=== PATIENT | female | born 1990 | race Caucasian/White ===

== ENCOUNTER 2020-08-20 13:09 | Outpatient (REF) | payer OTHER, SELFPAY | END 2020-08-20 13:10 | disposition home or self-care (01) | LOC: HO.LAB 13:09 | PROVIDERS: PCP Internal Medicine; Visit Provider Internal Medicine | DX: Z20.822 Contact with and (suspected) exposure to COVID-19 (principal) | CPT/HCPCS: 36415; C9803; U0003 ==

== ENCOUNTER → 2020-08-30 11:02 | Outpatient (BNVA) | payer OTHER, SELFPAY | PROVIDERS: PCP Internal Medicine; Visit Provider Advanced Practice Midwife ==

== ENCOUNTER → 2020-09-02 13:44 | Outpatient (BNVA) | payer OTHER, SELFPAY | PROVIDERS: PCP Internal Medicine; Visit Provider Advanced Practice Midwife | DX: Z30.46 Encounter for surveillance of implantable subdermal contraceptive (principal) | CPT/HCPCS: 11982 ==

== ENCOUNTER 2020-12-29 15:04 | Outpatient (REF) | payer OTHER, SELFPAY ==
[2021-01-01 09:57] LABS: HPV mRNA E6/E7 rflx Not Detected (Not Detected)
== END 2020-12-29 15:05 | disposition home or self-care (01) ==
LOC: HO.LAB 15:04
PROVIDERS: PCP Internal Medicine; Visit Provider Advanced Practice Midwife
DX: Z01.419 Encounter for gynecological examination (general) (routine) without abnormal findings (principal); J45.909 Unspecified asthma, uncomplicated
CPT/HCPCS: 87624; 88142

== ENCOUNTER 2023-02-20 14:18 | Outpatient (AMB) | payer BC, SELFPAY ==
--- NOTE | 2023-02-20 14:37 | A.OFFVIS_ITS ---
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 Scribed for BRENTON Veloz by Summer Barahona certified medical coding specialist, on 02/20/2023 at 2:50 pm EST. Materials Management Manager: Materials Management Manager Present (Leisa) Allergies Sulfa (Sulfonamide Antibiotics) Allergy (Unknown, Verified 02/20/23 14:38) hives Is last menstrual period known: Yes Last menstrual period: 02/17/23 HPI HPI Comments History of Present Illness Details She is a premenopausal woman presenting for annual exam. She admits to eating healthy and tries to stay active with exercise. Currently sexually active. States her and her partner are trying to conceive for the past 3-4 months. Reports having menses every 70 days. Denies being tested for PCOS, hirsutism or acne. Denies vaginal itching and irritation. STD screening offered; she declines. Denies family hx of ovarian cancer. Last pap smear 12/29/20 [facility] Medical History Asthma History of ureteropelvic junction repair Irregular menses Family History Paternal Grandmother History of breast cancer Colon cancer Social History Alcohol intake: current Alcohol intake frequency: holidays/special occasions only Patient Tobacco Use Status: Never used Tobacco Current occupational status: employed Current occupation: [employer] Sexual orientation: Straight/Heterosexual Gender identity: Female Female Reproductive History Menstrual Age of Menarche: 11 Duration of menses: 3-5 days Date of last menstrual period: 02/17/23 control method: none Total pregnancies: 0 Date of last pap smear: 12/29/20 (neg pap and hpv) Physical Exam Vital Signs: Last Vital Signs BP 118/74 02/20/23 14:38 BMI result Body Mass Index 27.2 Const General: cooperative, healthy appearing, no acute distress, well developed and alert Orientation/consciousness: patient oriented x3 HEENT Head: Yes normal to inspection Eyes General: appearance normal, both eyes and all related structures Neck Neck: Yes normal visual inspection Thyroid: Thyroid normal Chest Chest palpation & inspection: normal inspection of the chest Breast/axilla inspection: normal inspection of the breasts (no puckering, dimpling, peau de orange, retraction, discharge, masses) Breast/axilla palpation: normal palpation of the breasts Resp Effort & Inspection: normal respiratory effort GI Inspection: Yes normal to inspection Palpation (GI): Soft to palpation (to palpation) Rectal Exam - Female: deferred General: Yes bladder normal to inspection External Female Exam: normal external appearance and normal appearance of the urethra Speculum Exam - Vagina: normal appearance of the vagina, normal palpation, normal vaginal discharge and other (small amount of blood present) Speculum Exam - Cervix: normal appearance of the cervix and normal palpation Bimanual exam- vagina & uterus: normal palpation and normal palpation Bimanual Exam- Adnexa, other: normal adnexae and no masses Skin General skin exam: no rashes or lesions noted Neuro General: patient oriented x3 Cognition (Neuro): normal cognition Extrem General: Yes normal to inspection Psych Attitude: cooperative Thought process: Normal thought process present Thought content: Normal thought content present Assessment & Plan Assessment & Plan (1) Encounter for well woman exam: Code(s): Z01.419 - Encounter for gynecological examination (general) (routine) without abnormal findings Plan: Discussed: Current recommendations for pap smears per ASCCP guidelines Breast awareness and periodic self breast exams. Maintaining a healthy lifestyle including a well balanced diet and routine exercise. Continue PNV. Discussed lab workup; patient is agreeable to have work up done. Follow up via tele-visit for plan of care. She declines referral to [facility] today, will consider in the future. All of her questions and concerns were addressed to the best of my ability. RTO in one year for AG. (2) Irregular menses: Code(s): N92.6 - Irregular menstruation, unspecified Orders: Orders 17 Hydroxyprogesterone Today N92.6 - Irregular menstruation, unspecified DHEA Sulfate Today N92.6 - Irregular menstruation, unspecified Follicle Stimulating Hormone Today N92.6 - Irregular menstruation, unspecified, R23.2 - Flushing Prolactin Today N92.6 - Irregular menstruation, unspecified Testosterone, Free/Total Today N92.6 - Irregular menstruation, unspecified Thyroid Stimulating Hormone Today N92.1 - Excessive and frequent menstruation with irregular cycle, N92.6 - Irregular menstruation, unspecified Coding Level of Care Code Est Pt Prev Care 18-39y(72803) Diagnoses Encounter for well woman exam Z01.419 Irregular menses N92.6
[2023-02-20 14:38] VITALS: BP 118/74; BMI 27.2
== END 2023-02-20 16:22 | disposition home or self-care (01) ==
LOC: HO.HWS 14:18
PROVIDERS: Visit Provider Advanced Practice Midwife
DX: Z01.419 Encounter for gynecological examination (general) (routine) without abnormal findings (principal); N92.6 Irregular menstruation, unspecified
CPT/HCPCS: 99395

== ENCOUNTER → 2023-02-20 14:18 | Outpatient (BNVA) | payer BC, SELFPAY | PROVIDERS: Visit Provider Advanced Practice Midwife ==

== ENCOUNTER 2023-02-21 17:00 | Outpatient (REF) | payer BC, SELFPAY ==
[2023-02-21 23:02] LABS: Thyroid Stimulating Hormone 1.24 uIU/mL (0.32-4.0)
[2023-02-24 12:44] LABS: Prolactin 16.4 ng/mL
[2023-02-24 21:08] LABS: DHEA Sulfate 216 mcg/dL (19-237)
[2023-03-01 11:04] LABS: Testosterone, Free 2.6 pg/mL (0.1-6.4); Testosterone, Total 33 ng/dL (2-45)
== END 2023-02-21 17:01 | disposition home or self-care (01) ==
LOC: HO.LAB 17:00
PROVIDERS: PCP Nurse Practitioner; Visit Provider Advanced Practice Midwife
DX: R23.2 Flushing (principal); N92.6 Irregular menstruation, unspecified
CPT/HCPCS: 36415; 82627; 83001; 83498; 84146; 84402; 84403; 84443

== ENCOUNTER 2023-03-13 12:45 | Outpatient (AMB) | payer BC, SELFPAY ==
--- NOTE | 2023-03-13 12:45 | A.OFFVIS_ITS ---
Intake Intake Visit Reasons: TV lab results Intake Note: cell # [phone] The patient agreed to use of a medical billing assistant during this encounter. Scribed for BRENTON Veloz by Summer Barahona medical billing assistant, on 03/13/2023 at 12:58 pm EST. Allergies Sulfa (Sulfonamide Antibiotics) Allergy (Unknown, Verified 03/13/23 12:46) hives Is last menstrual period known: Yes Last menstrual period: 02/17/23 HPI HPI Comments History of Present Illness Details D[employer] live video 12:58 - 1:00 pm. Phone Call due to Covid-19 Pandemic. Video was utilized then disrupted. Telehealth visit 1:00pm -1:05 pm. Phone Call due to Covid-19 Pandemic. She presents via phone/live video to discuss lab results regarding irregular menses missing up to 2 months at a time. Planning a future . She has no questions or concerns. 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 Sexual orientation: Straight/Heterosexual Gender identity: Female Female Reproductive History Menstrual Age of Menarche: 11 Date of last menstrual period: 02/17/23 Physical Exam Const General: cooperative, healthy appearing, comfortable, no acute distress, well developed, alert and awake Results Reviewed Results Reviewed: Laboratory Tests 02/21/23 02/21/23 17:11 17:11 TSH 1.24 FSH 7.0 Prolactin 16.4 Total Testosterone 33 Fr Testosterone Dialys 2.6 DHEA Sulfate 216 17-Hydroxyprogesterone 29 Assessment & Plan Assessment & Plan (1) Encounter to discuss test results: Code(s): Z71.2 - Person consulting for explanation of examination or test findings Plan: Discussed: Lab results; normal. Recommend using menstrual tracking apps, and ovulation kits as needed. Referral to see infertility specialist if no on one year. To chek with her insurance for coverage and providers on her list. Encouraged to take PNV. PNV Rx offered; she declines. If missed menses, take at home test. All of her questions and concerns were addressed to the best of my ability and shared decision making. She is agreeable to plan of care. (2) Irregular menses: Code(s): N92.6 - Irregular menstruation, unspecified Telehealth Telehealth Location of provider rendering services: practice address Location of patient: other Patient Identification confirmed using: Name, : Yes Telehealth method: video Patient verbally consented to treatment: Yes Patient verbally consented to billing insurance company: Yes Patient informed of any privacy concerns related to visit: Yes Coding Level of Care Code Tele Est Pt Level 3 ([id number]) Diagnoses Encounter to discuss test results Z71.2 Irregular menses N92.6
== END 2023-03-13 13:29 | disposition home or self-care (01) ==
PROVIDERS: PCP Nurse Practitioner; Visit Provider Advanced Practice Midwife
DX: N92.6 Irregular menstruation, unspecified (principal); Z71.2 Person consulting for explanation of examination or test findings
CPT/HCPCS: 99213

== ENCOUNTER → 2023-03-13 12:45 | Outpatient (BNVA) | payer SELFPAY | PROVIDERS: PCP Nurse Practitioner; Visit Provider Advanced Practice Midwife ==

== ENCOUNTER 2023-09-20 14:44 | Outpatient (AMB) | payer BC, SELFPAY ==
--- OUTSIDE RECORDS SUMMARY | 2023-09-20 14:45 | XMS_ITS | Continuity of Care Document ---
Author Name Unknown Organization [facility] Address [address] [place] [address]- Encounter [facility] Date(s): 04/15/23 - 04/22/23 [facility] [address] [place] [address]- Encounter Diagnosis Acute UTI(Discharge Diagnosis) - 04/15/23 Attending Physician: Stan Case MD Allergies, Adverse Reactions, Alerts Substance Reaction Severity Status sulfa drugs Hives Active Medications No Known Medications Problem List Diagnosis Diagnosis Type Effective Dates Health Status Clini yoko Service Informant Acute UTI Discharge Diagnosis 04/15/23 Vital Signs Most recent to oldest [Reference Range]: 1 Oxygen Saturation [94-100 %] 97 % (04/15/23 12:38 PM) Pulse Rate [55-90 bpm] 71 bpm (04/15/23 12:38 PM) Blood Pressure [90-138/55-84 mm Hg] 107/ 74mm Hg (04/15/23 12:38 PM) Respiratory Rate [16-30 br/min] 20 br/mi n (04/15/23 12:38 PM) Temperature [96.8-100.4 DegF] 97.5 DegF (04/15/23 12:38 PM) Mode of Delivery (Oxygen) Room air (04/15/23 12:38 PM) Blood pressure sites Arm, left (04/15/23 12:38 PM) Temperature Route Temporal (04/15/23 12:38 PM) Note * Malka Hyde NP: PERFORM, SIGN, VERIFY Event Display: Patient Education/Instruction Authored Date: [id number] [facility] *[facility] Clinical Summary Name SÁNCHEZ SPICERMARAL ESTRELLA Age 32 Years 1990 PCP PCP Phone Visit Date 04/15/2023 11:27:00 Additional Instructions: Scheduled Appointments?? Future Appointments ?No Future Appointments Scheduled Follow-Up Instructions ?? Diagnosis Urinary tract infection, site not specified Medications: Please continue your medications until treatment is completed or stopped by your provider. Discuss any questions related to medications with your provider. New Medications [id number], [address] [place], [place] [id number], [phone] Nitrofurantoin (nitrofurantoin macrocrystals 100 mg oral capsule) 1 capsule Oral twice a day for 5 Days. Refills: 0. Next Dose: Allergy Info:?? sulfa drugs Medications Given This Visit Future Orders ?No future orders Vital Signs Height Weight BMI Blood Pressure 107 mm Hg/74 mm Hg Temperature 97.5 DegF Pulse Rate 71 bpm Respiratory Rate 20 br/min 02 Sat Mode of Delivery 97 %/Room air You can now view a summary of your hospital visit from the comfort of your home through a free online portal called EpiVax. EpiVax is a website that allows you to securely view your medical information including discharge summary, medications and follow-up visits. ??You can alsosend a secure electronic message to your doctor???s office to request appointments, renew medications or just ask a question. You can enroll at [email or web address] or register during your next office visit. Disclaimer:?? The information provided is of a general nature and is intended to be used in conjunction with the recommendations and advice of your health care practitioner. ??Every effort has been made to ensure that the information provided is accurate and complete at the time it is provided to you however, as your needs change, or, as new ??information becomes available, different or additional instructions may be required. If you have questions, please consult with your primary care provider or pharmacist, as appropriate. ??This information is not intended to serve as substitution for assessment and evaluation by a qualified health care provider. If you do not have a primary care provider, you may find a [facility] provider by calling [employer] at [phone]. [facility], in keeping with [facility] guidance, no longer requires face masks for staff, patientsor visitors in most situations. Similar to time spent indoors at other locations, there is the chance that you were exposed to respiratory viruses during your time with us (such as flu or COVID-19).? If you develop symptoms concerning for a viral respiratory infection, please seek testing (and treatment if indicated) from your medical provider or home test kit. For information about the plan of care including goals and instructions for your diagnosis, please see the patient education orders section of this document. Patient Education Materials?? The content of this educational material or handout may have been modified, supplemented, or adapted from its original content and format to support your individualized medical care. Bladder Infection,??Female (Adult) Urine is normally free from bacteria. But bacteria can get into the urinary tract from the skin around the rectum, or it can travel in the blood from elsewhere in the body. Once it is in your urinarytract, it can cause infection in the urethra (urethritis), the bladder (cystitis), or the kidneys (p yelonephritis). The most common place for an infection is in the bladder. This is called a bladder infection. This is one of the most common infections in women. Most bladder infections are easily treated. They are not serious unless the infection spreads up to the kidney. The phrases bladder infection , UTI, and cystitis, are often used to describe the same thing, but they are not always the same. Cystitis is an inflammation of the bladder. The??most common causeof cystitis is an infection. Symptoms The infection causes inflammation in the urethra and bladder, which causes many of the symptoms. The most common symptoms of a bladder infection are: ??? Pain or burning when urinating ??? Having to urinate more often than usual ??? Urgent need to urinate ??? Only a small amount of urine comes out ??? Blood in urine ??? Abdominal discomfort, usually in the lower abdomen, above the pubic bone ??? Cloudy, strong, or bad smelling urine ??? Urinary retention, being unable to urinate ??? Unable to hold urine in (urinary incontinence) ??? Fever ??? Loss of appetite ??? Confusion (in older adults) Causes Bladder infections are not contagious. You can't get one from someone else, from a toilet seat, or from sharing a bath. The most common cause of bladder infections is bacteria from the bowels. The bacteria get onto the skin around the opening of the urethra. From there, it can get into the urine and travel up to the bladder, causing inflammation and infection. This usually happens because of: ??? Wiping improperly after urinating???always wipe from front to back. ??? Bowel incontinence ? Procedures such as having a catheter inserted ??? Older age ??? Not emptying your bladder (stagnated urine gives bacteria a chance to grow) ??? Dehydration ??? Constipation ??? Sex ??? Use of a diaphragm for control Treatment Bladder infections are diagnosed by a urine test. They are treated with antibiotics and usually??clear up quickly without complications. Treatment helps prevent a more serious kidney infection. Medicines Medicines can help in the treatment of a bladder infection: ??? Take antibiotics until they are used up, even if you feel better. It is important to finish them to make sure the infection has cleared. ??? You can use acetaminophen or ibuprofen for pain, fever, or discomfort, unless another medicine was prescribed. You can also alternate them, or use both together. They work differently and are a different class of medicines, so taking them together is not an overdose. If you have chronic liver or kidney disease, talk with your healthcare??provider before using??these medicines. Also talk with your provider if you've ever had a stomach ulcer or gastrointestinal bleeding, or are taking blood-thinner medicines. ??? If you are given??phenazopydridine to reduce burning with urination, it will cause your urine to become a bright orange color. This can stain clothing. Care and prevention These self-care steps can help prevent future infections: ??? Drink plenty of fluids to prevent dehydration and flush out of the bladder. Do this??unless youmust restrict fluids for other health reasons, or your doctor told you not to. ??? Proper cleaning after going to the bathroom is important. Wipe from front to back after using the toilet to prevent the spread of bacteria. ??? Urinate more often. Don't try to hold urine in for a long time. ??? Wear loose-fitting clothes and cotton underwear. Avoid tight-fitting pans. ??? Improve your diet and prevent constipation. Eat more fresh fruit and vegetables, and??fiber, and less junk and fatty foods. ??? Avoid sex until your symptoms are gone. ??? Avoid caffeine, alcohol, and spicy foods. These can irritate the bladder. ??? Urinate right after intercourse to flush out the bladder. ??? If you use control pills and have frequent bladder infections, discuss it with your doctor. Follow-up care Call your healthcare provider if all symptoms are not gone after 3 days of treatment. This is especially important if you have repeat infections. If a culture was done, you will be told if your treatment needs to be changed. If directed, you cancall??to find out the results. If X-rays were done, you will be told if the results will affect your??treatment. Call 911 Call emergency services if any of the following occur: ??? Trouble breathing ??? Difficulty arousing??or??confusion ??? Fainting or loss of consciousness ??? Rapid heart rate When to seek medical advice Call your healthcare provider right away if any of these occur: ??? Fever of 100.4??F (38.0??C) or higher, or as directed ??? Symptoms are not better??by the third day of treatment ??? Back or belly (abdominal) pain that gets worse ??? Repeated vomiting, or unable to keep medicine down ??? Weakness or dizziness ??? Vaginal discharge ??? Pain, redness, or swelling in the outer vaginal area (labia) ?? 8587-8777 [employer] [address] [place] [address], [place] [address]. All rights reserved. This information is not intended as a substitute for professional medical care. Always follow your healthcare professional's instructions. * Malka Hyde NP: PERFORM, SIGN, VERIFY Event Display: Patient Education/Instruction Authored Date: [facility] *[facility] Clinical Summary Name MARAL SPENCER Age 32 Years 1990 PCP PCP Phone Visit Date 04/15/2023 11:27:00 Additional Instructions: Scheduled Appointments?? Future Appointments ?No Future Appointments Scheduled Follow-Up Instructions ?? Diagnosis Urinary tract infection, site not specified Medications: Please continue your medications until treatment is completed or stopped by your provider. Discuss any questions related to medications with your provider. New Medications [id number], [address], [place] [id number], [phone] Nitrofurantoin (nitrofurantoin macrocrystals 100 mg oral capsule) 1 capsule Oral twice a day for 5 Days. Refills: 0. Next Dose: Allergy Info:?? sulfa drugs Medications Given This Visit Future Orders ?No future orders Vital Signs Height Weight BMI Blood Pressure 107 mm Hg/74 mm Hg Temperature 97.5 DegF Pulse Rate 71 bpm Respiratory Rate 20 br/min 02 Sat Mode of Delivery 97 %/Room air You can now view a summary of your hospital visit from the comfort of your home through a free online portal called EpiVax. EpiVax is a website that allows you to securely view your medical information including discharge summary, medications and follow-up visits. ??You can alsosend a secure electronic message to your doctor???s office to request appointments, renew medications or just ask a question. You can enroll at [email or web address] or register during your next office visit. Disclaimer:?? The information provided is of a general nature and is intended to be used in conjunction with the recommendations and advice of your health care practitioner. ??Every effort has been made to ensure that the information provided is accurate and complete at the time it is provided to you however, as your needs change, or, as new ??information becomes available, different or additional instructions may be required. If you have questions, please consult with your primary care provider or pharmacist, as appropriate. ??This information is not intended to serve as substitution for assessment and evaluation by a qualified health care provider. If you do not have a primary care provider, you may find a [facility] provider by calling [facility] [employer] Link at [phone]. [facility], in keeping with [facility] guidance, no longer requires face masks for staff, patientsor visitors in most situations. Similar to time spent indoors at other locations, there is the chance that you were exposed to respiratory viruses during your time with us (such as flu or COVID-19).? If you develop symptoms concerning for a viral respiratory infection, please seek testing (and treatment if indicated) from your medical provider or home test kit. For information about the plan of care including goals and instructions for your diagnosis, please see the patient education orders section of this document. Patient Education Materials?? The content of this educational material or handout may have been modified, supplemented, or adapted from its original content and format to support your individualized medical care. Bladder Infection,??Female (Adult) Urine is normally free from bacteria. But bacteria can get into the urinary tract from the skin around the rectum, or it can travel in the blood from elsewhere in the body. Once it is in your urinarytract, it can cause infection in the urethra (urethritis), the bladder (cystitis), or the kidneys (p yelonephritis). The most common place for an infection is in the bladder. This is called a bladder infection. This is one of the most common infections in women. Most bladder infections are easily treated. They are not serious unless the infection spreads up to the kidney. The phrases bladder infection , UTI, and cystitis, are often used to describe the same thing, but they are not always the same. Cystitis is an inflammation of the bladder. The??most common causeof cystitis is an infection. Symptoms The infection causes inflammation in the urethra and bladder, which causes many of the symptoms. The most common symptoms of a bladder infection are: ??? Pain or burning when urinating ??? Having to urinate more often than usual ??? Urgent need to urinate ??? Only a small amount of urine comes out ??? Blood in urine ??? Abdominal discomfort, usually in the lower abdomen, above the pubic bone ??? Cloudy, strong, or bad smelling urine ??? Urinary retention, being unable to urinate ??? Unable to hold urine in (urinary incontinence) ??? Fever ??? Loss of appetite ??? Confusion (in older adults) Causes Bladder infections are not contagious. You can't get one from someone else, from a toilet seat, or from sharing a bath. The most common cause of bladder infections is bacteria from the bowels. The bacteria get onto the skin around the opening of the urethra. From there, it can get into the urine and travel up to the bladder, causing inflammation and infection. This usually happens because of: ??? Wiping improperly after urinating???always wipe from front to back. ??? Bowel incontinence ? Procedures such as having a catheter inserted ??? Older age ??? Not emptying your bladder (stagnated urine gives bacteria a chance to grow) ??? Dehydration ??? Constipation ??? Sex ??? Use of a diaphragm for control Treatment Bladder infections are diagnosed by a urine test. They are treated with antibiotics and usually??clear up quickly without complications. Treatment helps prevent a more serious kidney infection. Medicines Medicines can help in the treatment of a bladder infection: ??? Take antibiotics until they are used up, even if you feel better. It is important to finish them to make sure the infection has cleared. ??? You can use acetaminophen or ibuprofen for pain, fever, or discomfort, unless another medicine was prescribed. You can also alternate them, or use both together. They work differently and are a different class of medicines, so taking them together is not an overdose. If you have chronic liver or kidney disease, talk with your healthcare??provider before using??these medicines. Also talk with your provider if you've ever had a stomach ulcer or gastrointestinal bleeding, or are taking blood-thinner medicines. ??? If you are given??phenazopydridine to reduce burning with urination, it will cause your urine to become a bright orange color. This can stain clothing. Care and prevention These self-care steps can help prevent future infections: ??? Drink plenty of fluids to prevent dehydration and flush out of the bladder. Do this??unless youmust restrict fluids for other health reasons, or your doctor told you not to. ??? Proper cleaning after going to the bathroom is important. Wipe from front to back after using the toilet to prevent the spread of bacteria. ??? Urinate more often. Don't try to hold urine in for a long time. ??? Wear loose-fitting clothes and cotton underwear. Avoid tight-fitting pans. ??? Improve your diet and prevent constipation. Eat more fresh fruit and vegetables, and??fiber, and less junk and fatty foods. ??? Avoid sex until your symptoms are gone. ??? Avoid caffeine, alcohol, and spicy foods. These can irritate the bladder. ??? Urinate right after intercourse to flush out the bladder. ??? If you use control pills and have frequent bladder infections, discuss it with your doctor. Follow-up care Call your healthcare provider if all symptoms are not gone after 3 days of treatment. This is especially important if you have repeat infections. If a culture was done, you will be told if your treatment needs to be changed. If directed, you cancall??to find out the results. If X-rays were done, you will be told if the results will affect your??treatment. Call 911 Call emergency services if any of the following occur: ??? Trouble breathing ??? Difficulty arousing??or??confusion ??? Fainting or loss of consciousness ??? Rapid heart rate When to seek medical advice Call your healthcare provider right away if any of these occur: ??? Fever of 100.4??F (38.0??C) or higher, or as directed ??? Symptoms are not better??by the third day of treatment ??? Back or belly (abdominal) pain that gets worse ??? Repeated vomiting, or unable to keep medicine down ??? Weakness or dizziness ??? Vaginal discharge ??? Pain, redness, or swelling in the outer vaginal area (labia) ?? [id number] [employer] [address] [place] [address], [place] [address]. All rights reserved. This information is not intended as a substitute for professional medical care. Always follow your healthcare professional's instructions.
--- OUTSIDE RECORDS SUMMARY | 2023-09-20 14:45 | XMS_ITS | Continuity of Care Document ---
Author Name Unknown Organization [facility] Address [address] [place] [address]- Encounter [facility] Date(s): 04/15/23 - 05/15/23 [facility] [address] [place] [address]- Attending Physician: Cj Claire Admitting Physician: Cj Claire Referring Physician: Cj Claire Allergies, Adverse Reactions, Alerts Substance Reaction Severity Status sulfa drugs Hives Active
--- NOTE | 2023-09-20 14:47 | A.OFFVIS_ITS ---
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 G 2 P 0. She reports last LMP of 08/01/2023 gives her an EDC of 05/10/24 for approximately now 7.3 weeks . She reports her periods were a little irregular. She denies any nausea or vomiting. She denies any pelvic pain or vaginal bleeding. She is currently taking vitamins. Her ultrasound appointment is booked for tomorrow. 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 Sexual orientation: Straight/Heterosexual Gender identity: Female Female Reproductive History Menstrual Age of Menarche: 11 Date of last menstrual period: 08/01/23 Total pregnancies: 1 Review of Systems Const All systems reviewed & are unremarkable except as noted in HPI and below Endo Reports no additional complaints Physical Exam Vital Signs: Last Vital Signs BP 100/60 09/20/23 14:50 BMI result Body Mass Index 26.5 Const General: cooperative, healthy appearing and no acute distress Psych Appearance: well kempt Attitude: cooperative Thought process: Normal thought process present Results AMB Test Urine AMB Test Urine Positive Last Edit by MUSTAPHA Prakash on 09/20/23 15:03 Results Reviewed Results Reviewed: Laboratory Last Values [facility]st Clinic Positive 09/20/23 15:03 Assessment & Plan Assessment & Plan (1) Early stage of : Code(s): Z34.90 - Encounter for supervision of normal , unspecified, unspecified trimester Plan: Discussed: Diet intake foods to avoid. Warning signs of when to call with any abdominal pain or vaginal bleeding. Await ultrasound findings for confirmation of EDC. Schedule nurse intake, and OB physical appointment. Informed of deliveries at [facility] and care administered here. All of her questions and concerns were addressed to the best of my ability and shared decision making. She is agreeable to the plan of care. This note is constructed using voice recognition software. While every effort has been made to ensure accuracy, product analyst errors may have been included. Orders: Orders AMB HCG Urine Test Today Z32.01 - Encounter for test, result positive Coding Level of Care Code Est Pt Level 3 (77882) Diagnoses Early stage of Z34.90
[2023-09-20 14:50] VITALS: BP 100/60; BMI 26.5
== END 2023-09-20 16:07 | disposition home or self-care (01) ==
LOC: HO.HWS 14:44
PROVIDERS: PCP Nurse Practitioner; Visit Provider Advanced Practice Midwife
DX: Z34.90 Encounter for supervision of normal pregnancy, unspecified, unspecified trimester (principal); Z32.01 Encounter for pregnancy test, result positive
CPT/HCPCS: 99213

== ENCOUNTER → 2023-09-20 14:44 | Outpatient (BNVA) | payer BC, SELFPAY | PROVIDERS: PCP Nurse Practitioner; Visit Provider Advanced Practice Midwife | DX: Z34.91 Encounter for supervision of normal pregnancy, unspecified, first trimester (principal) | CPT/HCPCS: 81025 ==

== ENCOUNTER 2023-09-21 12:28 | Outpatient (REF) | payer BC, SELFPAY ==
--- NOTE | ~2023-09-21 | US_ITS ---
EXAMINATION: US OBSTETRICAL ULTRASOUND CLINICAL INFORMATION: Irregular menses. COMPARISON: None available. LMP: 08/01/2023. Gestational age by maternal dates is 7 weeks 2 days. Estimated date of delivery by maternal dates is 05/07/2024. TECHNIQUE: Routine grayscale imaging of pelvis was performed FINDINGS: There is a single intrauterine gestational sac with visible yolk sac, embryo/fetus, and cardiac activity. There is no significant subchorionic hemorrhage or hematoma. HR: 124 beats per minute. CRL (crown rump length): 0.91 cm (7 weeks and 0 days +/- 4 days). SUSANNAH (estimated date of delivery): 05/09/2024 +/- 4 days. MATERNAL ADNEXA: The right maternal ovary measures 3.3 x 2.4 x 2.2 cm. There is anechoic cyst measuring 1.9 x 1.4 x 1.8 cm. The left maternal ovary measures 2.1 x 1.6 x 2.0 cm. There is no significant maternal adnexal mass. No maternal pelvic ascites. US/US OB <= 14 weeks fetus IMPRESSION: 1. Single intrauterine gestation with ultrasound gestational age of 7 weeks and 0 +/- 4 days. 2. Estimated date of delivery is 05/09/2024 +/- 4 days. 3. No maternal adnexal mass or pelvic ascites.
== END 2023-09-21 12:29 | disposition home or self-care (01) ==
LOC: HO.US 12:28
PROVIDERS: PCP Nurse Practitioner; Visit Provider Advanced Practice Midwife
DX: Z34.91 Encounter for supervision of normal pregnancy, unspecified, first trimester (principal); Z3A.01 Less than 8 weeks gestation of pregnancy
CPT/HCPCS: 76801

== ENCOUNTER 2023-10-03 13:51 | Outpatient (AMB) | payer BC, SELFPAY ==
--- NOTE | 2023-10-03 14:06 | A.OFFVISPN_ITS ---
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 Required: No Allergies Sulfa (Sulfonamide Antibiotics) Allergy (Unknown, Verified 09/20/23 14:50) hives Medication List - Last Reconciled 10/03/23 by Lisbet Fontenot albuterol sulfate 90 mcg/actuation (Proair Digihaler) 2 inhalations inhalation Q6H PRN Is last menstrual period known: Yes Last menstrual period: 08/01/23 Post menopausal: No Patient : Yes Do you need a note to return to daycare/school/sports/work: No PFSH Medical History (Updated 10/03/23 @ 14:56 by Lisbet Fontenot) Supervision of normal in first trimester Enlarged kidney Early stage of Irregular menses Asthma Surgical History (Updated 10/03/23 @ 14:11 by Lisbet Fontenot) History of ureteropelvic junction repair Family History (Updated 10/03/23 @ 14:15 by Lisbet Fontenot) Paternal Grandmother History of breast cancer Colon cancer Lung cancer Paternal Grandfather CAD (coronary artery disease) Maternal Grandmother Alzheimer's dementia Mother Hypothyroidism Father No problems noted. 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 Current occupational exposures/hazards: No Sexual orientation: Straight/Heterosexual Gender identity: Female Female Reproductive History Menstrual Age of Menarche: 11 Duration of menses: 3-5 days Date of last menstrual period: 08/01/23 control method: vaginal ring Total pregnancies: 1 Full term: 0 Premature: 0 Number of Living Children: 0 Ab induced: 0 Ab spontaneous: 0 Ectopics: 0 Multiple births: 0 Date of last pap smear: 12/28/20 History of abnormal pap smear: No History of STI: No History History 1 Elective abortions 0 Para 0 Spontaneous abortions 0 Hx # Term Pregnancies 0 Ectopic pregnancies 0 Hx # Pregnancies 0 Multiple births 0 History Other: First Education First Trimester Education Checklist Plans/Education - by Trimester Counseled: Yes HIV and other routine tests: discussed Infectious disease exposure: chicken pox immunity discussed, hepatitis risk discussed and tuberculosis exposure discussed Influenza vaccine: discussed Nutrition and weight gain counseling: special diet: discussed Sexual activity: discussed Exercise: discussed Tobacco use: No Alcohol use: No Substance use: No Environmental/home/work hazards: discussed Domestic violence: discussed Travel: discussed Seatbelt use: discussed Toxoplasmosis precautions (cats/raw meat): discussed danger signs: Yes education packet: vitamins and iron, diet and weight gain, fish and mercury intake, listeriosis prevention, caffeine use, exercise and activity, work issues, sexual activity, x-ray exposure, medication use, toxoplasmosis precautions, sauna/hot tub use and dental care Mental health: discussed Anticipated course of care: discussed Indications for ultrasound: discussed Health center information: visit schedule reviewed, coverage 24 hours a day and signs of miscarriage reviewed Questionnaire History History : 1 Visit SUSANNAH Calculator Estimated Delivery Date Method Current WG Current Estimate 05/09/24 Ultrasound #1 8w 5d Other Estimates 05/07/24 LMP (Certain) 9w 0d Expected Delivery Route/Plan OB Visit Log Initial Weight: 165 lb Date -?-?-?-?-?-?-?-?-?-?-?-?- EGA Weight Gest Week Fundal Ht Present FHR move Efface % Edema BP PrePreg We Weight GTT -?-?-?-?-?-?-?-?-?-?-?-?- Glucose LV Protein Blood Type 10/03/23 -?-?-?-?-?-?-?-?-?-?-?-?- 8w 5d 170 lb (+5 lb) 170 lb -?-?-?-?-?-?-?-?-?-?-?-?- Notes Visit Date: 10/03/23 Last Updated by: Lisbet Fontenot Swati is a pleasant with LMP 08/01/23 (certain) and SUSANNAH 05/07/24, GA today 8w5d. US on 09/21/23 at 7w0d gives SUSANNAH 05/09/24 and GA today of 9w0d. She is taking OTC PNV and reports some occasional nausea, otherwise she feels well. She takes dry crackers for relief. Swati and her are excited about this planned . She is 33 yo and will be 34 yo on or about her SUSANNAH. She was given the Folder. We reviewed danger signs, and first trimester education. Will order NT US and labs today. Pt is scheduled for OB PE 10/19/23 with Kaycee paperwork will be provided for this visit. Swati requests sex to be provided, although she is not completely certain she will want to know the result. Further discussion at the time of results. Swati also reports h/o enlarged kidney without problems at this time. She sees Urologist here at [facility] [place]. Blood type A neg per patient. Pt has no questions at this time. She verbalizes understanding and agrees with plan. 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 Patient's age 35 years or older as of estimated date of delivery: No 2. Thalassemia (Luxembourgish, Kosovan, Mediterranean, or Background); MCV less than 80: No 3. Neural Tube Defect (Meningomyelocele, Spina Bifida, or Anencephaly): No 4. Congenital Heart Defect: No 5. Down Syndrome: No 6. Shahriar-Sachs (Ashkenazi Presybeterian, Cajun, Khmer Bruneian): Yes 7. Fredis Disease (Ashkenazi Presybeterian): No 8. Familial Dysautonomia (Ashkenazi Presybeterian): No 9. Sickle Cell Disease or Trait (): No 10. Hemophilia or other blood disorders: No 11. Muscular Dystrophy: No 12. Cystic Fibrosis: No 13. [place]'s Chorea: No 14. Intellectual disability/Autism: Yes 15. Other inherited genetic or chromosomal disorder: No 16. Maternal Metabolic Disorder (EG,TYPE 1 Diabetes, PKU): No 17. Patient or baby's father had a child with defects not listed above: No 18. Recurrent loss or a stillbirth: No 19. Medications (including supplements, vitamins, herbs or otc drugs)/illicit/recreational drugs/alcohol since last menstrual period: No 20. Any other: No Comments/Counseling: Khmer Bruneian background Infection History 1. Live with someone with TB or exposed to TB: No 2. Rash or viral illness since last menstrual period: No 3. Hepatitis B,C: No Other (see comments) Source: [employer] Coding Level of Care Code Established Pt Betty Patient Type Established Medical Decision Making Moderate Complexity Diagnoses Early stage of Z34.90 Irregular menses N92.6 Enlarged kidney N28.81 Supervision of normal in first trimester Z34.91 Time Spent (min) 60 Assessment & Plan Assessment & Plan (1) Early stage of : Code(s): Z34.90 - Encounter for supervision of normal , unspecified, unspecified trimester Category: Medical (2) Irregular menses: Code(s): N92.6 - Irregular menstruation, unspecified Category: Medical (3) Enlarged kidney: Code(s): N28.81 - Hypertrophy of kidney Category: Medical (4) Supervision of normal in first trimester: Code(s): Z34.91 - Encounter for supervision of normal , unspecified, first trimester Category: Medical Plan Next visit for OB PE scheduled 10/19/23 Pt will go to lab to have blood/urine testing Counseled re: [place] [facility] Discussed Panorama test and pt would like to know sex Orders: Orders Complete Blood Count no Diff Today Z32.01 - Encounter for test, result positive, Z34.91 - Encounter for supervision of normal , unspecified, first trimester Syphilis Screen Today Z32.01 - Encounter for test, result positive, Z34.91 - Encounter for supervision of normal , unspecified, first trimester Hepatitis B Surface Antigen Today Z32.01 - Encounter for test, result positive, Z34.91 - Encounter for supervision of normal , unspecified, first trimester Urine Culture Today Z32.01 - Encounter for test, result positive, Z34.91 - Encounter for supervision of normal , unspecified, first trimester HIV Ab/Ag Today Z32.01 - Encounter for test, result positive, Z34.91 - Encounter for supervision of normal , unspecified, first trimester Drug Screen Urine Today Z32.01 - Encounter for test, result positive, Z34.91 - Encounter for supervision of normal , unspecified, first trimester Screen Today Z32.01 - Encounter for test, result positive, Z34.91 - Encounter for supervision of normal , unspecified, first trimester Rubella IgG Antibody Today Z32.01 - Encounter for test, result positive, Z34.91 - Encounter for supervision of normal , unspecified, first trimester CF Carrier Screen Today Z32.01 - Encounter for test, result positive, Z34.91 - Encounter for supervision of normal , unspecified, first trimester Varicella IgG Antibody Today Z32.01 - Encounter for test, result positive, Z34.91 - Encounter for supervision of normal , unspecified, first trimester Hepatitis C Antibody Today Z32.01 - Encounter for test, result positive, Z34.91 - Encounter for supervision of normal , unspecified, first trimester US OB 1T nuc measure Today Z32.01 - Encounter for test, result positive, Z34.91 - Encounter for supervision of normal , unspecified, first trimester
[2023-10-03 14:07] VITALS: BMI 26.6
== END 2023-10-03 15:26 | disposition home or self-care (01) ==
LOC: HO.HWS 13:51
PROVIDERS: PCP Nurse Practitioner; Visit Provider Advanced Practice Midwife
DX: Z34.90 Encounter for supervision of normal pregnancy, unspecified, unspecified trimester (principal); N92.6 Irregular menstruation, unspecified; N28.81 Hypertrophy of kidney; Z34.91 Encounter for supervision of normal pregnancy, unspecified, first trimester
CPT/HCPCS: 25942

== ENCOUNTER 2023-10-03 13:51 | Outpatient (REF) | payer BC, SELFPAY ==
[2023-10-03 17:44] LABS: Hematocrit 41.7 % (37.0-47.0); Hemoglobin 13.7 g/dl (12.0-16.0); Mean Corpuscular HGB Conc 32.9 g/dl (31.0-35.0); Mean Corpuscular Hemoglobin 28.4 pg (27.0-33.0); Mean Corpuscular Volume 86.3 fL (80.0-98.0); Mean Platelet Volume 9.2 fL (9.4-12.3); Platelet Count 259 X10*3/uL (160-400); Red Blood Count 4.83 X10*6/uL (4.20-5.50); Red Cell Distribution Width 12.8 % (11.0-16.0); White Blood Count 10.5 X10*3/uL (4.8-10.8)
[2023-10-03 18:56] LABS: Amphetamine Screen Urine Not Detected (Not Detect); Barbiturates, Urine Not Detected (Not Detect); Benzodiazepines Screen Urine Not Detected (Not Detect); Cannabinoid Screen Urine Not Detected (Not Detect); Cocaine Screen Urine Not Detected (Not Detect); Fentanyl, urine Not Detected (Not Detect); Opiate Screen Urine Not Detected (Not Detect); Phencyclidine Screen Urine Not Detected (Not Detect)
[2023-10-04 07:56] LABS: Syphilis Screen Nonreactive (Nonreactive)
[2023-10-04 08:29] LABS: HBsAGNum1 0.34 S/CO (0.00-0.99); HIV AB/AG Nonreactive (Nonreactive); HIV Num 1 0.05 S/CO (0.00-0.99); Hepatitis B Surface Antigen Negative (Negative); ~HepC Num1 0.13 S/CO (0.00-0.79); ~Hepatitis C Antibody Nonreactive (Nonreactive)
[2023-10-05 13:49] LABS: Rubella IgG Antibody 1.13 Index
[2023-10-16 13:48] LABS: CF Ethnicity NG; Cystic Fibrosis NEGATIVE (NEGATIVE)
== END 2023-10-03 13:52 | disposition home or self-care (01) ==
LOC: HO.LAB 13:51
PROVIDERS: PCP Nurse Practitioner; Visit Provider Advanced Practice Midwife
DX: O26.891 Other specified pregnancy related conditions, first trimester (principal); N28.81 Hypertrophy of kidney; Z3A.08 8 weeks gestation of pregnancy
CPT/HCPCS: 80307; 81220; 85027; 86762; 86780; 86787; 86803; 86850; 86900; 87086; 87340; 87389; 99212

== ENCOUNTER 2023-10-10 16:49 | Outpatient (REF) | payer BC, SELFPAY ==
[2023-10-10 17:42] LABS: Appearance Urine Clear; Color Urine Yellow; Glucose Urine UA Negative (Negative); Leukocyte Esterase Urine Trace (Negative); Nitrite Urine Negative (Negative); Specific Gravity - Urine <= 1.005 (1.005-1.025); UMIC TRIGGER UACC YES; Urine Blood Negative (Negative); Urine Ketones Negative (Negative); Urine Protein Negative (Neg-Trace)
[2023-10-10 17:47] LABS: Bacteria Urine None Seen (None Seen); Hyaline Casts Urine 0-2 /LPF (0-2); RBC Urine 0-2 /HPF (0-2); Squamous Epithelial Cell Urine 0-2 /HPF (0-2); WBC Urine 0-5 /HPF (0-5)
== END 2023-10-10 16:50 | disposition home or self-care (01) ==
LOC: HO.LAB 16:49
PROVIDERS: PCP Nurse Practitioner; Visit Provider Advanced Practice Midwife
DX: Z34.91 Encounter for supervision of normal pregnancy, unspecified, first trimester (principal)
CPT/HCPCS: 81001

== ENCOUNTER 2023-10-19 11:24 | Outpatient (REF) | payer BC, SELFPAY ==
[2023-10-20 09:45] LABS: CT PCR NOT DETECTED (Not Detect.); NG PCR NOT DETECTED (Not Detect.)
== END 2023-10-19 11:25 | disposition home or self-care (01) ==
LOC: HO.LNP 11:24
PROVIDERS: PCP Nurse Practitioner; Visit Provider Advanced Practice Midwife
DX: Z34.91 Encounter for supervision of normal pregnancy, unspecified, first trimester (principal); Z3A.11 11 weeks gestation of pregnancy; Z20.2 Contact with and (suspected) exposure to infections with a predominantly sexual mode of transmission
CPT/HCPCS: 0353U; 99212

== ENCOUNTER 2023-10-19 11:24 | Outpatient (AMB) | payer BC, SELFPAY ==
--- NOTE | 2023-10-19 11:27 | MHC.OFFVISPN ---
Intake Vital Signs 10/19/23 11:30 Height 5 ft 7 in Weight 170 lb BMI 26.6 BP 116/64 Intake Visit Reasons: OBPE Intake Note: no concerns Phlebotomy Program Coordinator Required: No Information Interpreted: non-clinical & clinical Explosive Operator: Explosive Operator Present (Beverly LUCIANO) Accompanied by: Self / Same As Patient Allergies Sulfa (Sulfonamide Antibiotics) Allergy (Unknown, Verified 10/19/23 11:31) hives Patient : Yes PFSH Medical History Supervision of normal in first trimester Enlarged kidney Early stage of Asthma Surgical History History of ureteropelvic junction repair Family History Paternal Grandmother History of breast cancer Colon cancer Lung cancer Paternal Grandfather CAD (coronary artery disease) Maternal Grandmother Alzheimer's dementia Mother Hypothyroidism Father No problems noted. 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 Current occupational exposures/hazards: No Sexual orientation: Straight/Heterosexual Gender identity: Female Female Reproductive History Menstrual Age of Menarche: 11 Total pregnancies: 1 Date of last pap smear: 12/30/20 History History 1 Elective abortions 0 Para 0 Spontaneous abortions 0 Hx # Term Pregnancies 0 Ectopic pregnancies 0 Hx # Pregnancies 0 Multiple births 0 Questionnaire History History : 1 Visit SUSANNAH Calculator Estimated Delivery Date Method Current WG Current Estimate 05/09/24 Ultrasound #1 11w 0d Other Estimates 05/07/24 LMP (Certain) 11w 2d Expected Delivery Route/Plan Specific Issues/Plans 33 Yr. old G 1 P0 EDC: 05/09/24 by US Blood type: Aneg Problem List: 1. Rh negative 2. AMA, EDC on birthdate 3. enlarged right thyroid lobe-TSH, ref. to PCP, FH of thyroid disorder-mom Testing: Panorama: ordered 10/19/23 NT scan: booked 10/28 AFP: FAS: Glucose: CBC 1st Tri: 13.7/41.7 28 wk. 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 11wk. CHERYL. Taking PNV, Doing well with no concerns. Good appetite, stays well hydrated. Denies any LOF, VB, abd. pain or urinary symptoms. OBPE today, enlarged right thyroid lobe plan labs follow up with PCP. EPDS=2. Reviewed: Panoramic labs today. Nuchal lucency ordered appt. on 10/28 at [facility]. Rh neg, to call if any VB. Rhogam use. When to call for any vaginal bleeding or abdominal pain or other concerns. Encouraged a healthy well balanced diet, regular walking/exercise in . Hydrate well, 8-10 glasses of water daily. RTO 4wks. Visit Date: 10/03/23 Last Updated by: Lisbet Fontenot Swati is a pleasant with LMP 08/01/23 (certain) and SUSANNAH 05/07/24, GA today 8w5d. US on 09/21/23 at 7w0d gives SUSANNAH 05/09/24 and GA today of 9w0d. She is taking OTC PNV and reports some occasional nausea, otherwise she feels well. She takes dry crackers for relief. Swati and her are excited about this planned . She is 33 yo and will be 34 yo on or about her SUSANNAH. She was given the Folder. We reviewed danger signs, and first trimester education. Will order NT US and labs today. Pt is scheduled for OB PE 10/19/23 with Renee and Re paperwork will be provided for this visit. Swati requests sex to be provided, although she is not completely certain she will want to know the result. Further discussion at the time of results. Swati also reports h/o enlarged kidney without problems at this time. She sees Urologist here at [facility] [place]. Blood type A neg per patient. Pt has no questions at this time. She verbalizes understanding and agrees with plan. Review of Systems Const All systems reviewed & are unremarkable except as noted in HPI and below Reports as per HPI Eyes Reports no additional complaints ENT Reports no additional complaints Card Reports no additional complaints Resp Reports no additional complaints GI Reports as per HPI and Reports no additional complaints Reports as per HPI Musc Reports no additional complaints Skin/Breast Reports as per HPI Neuro Reports no additional complaints Psych Reports no additional complaints Endo Reports no additional complaints Stanley/Lymph Reports no additional complaints Aller/Immun Reports no additional complaints Exam Const Constitutional General: cooperative, healthy appearing, no acute distress, well developed and alert Orientation/consciousness: patient oriented x3 HENMT Head: normal to inspection Eyes General: appearance normal, both eyes and all related structures Neck Neck: other (Thyroid right lobe is enlarged) Thyroid: Thyroid normal Chest Chest palpation & inspection: normal inspection of the chest and other (no puckering, dimpling, peau de orange, retraction, discharge, masses) Breast/axilla inspection: normal inspection of the breasts Breast/axilla palpation: normal palpation of the breasts Resp Effort & Inspection: normal respiratory effort Auscultation: clear to auscultation bilaterally Cardio Rhythm: regular rhythm Heart sounds: S1 normal heart sound present GI Inspection (GI): normal to inspection Palpation (GI): Soft to palpation General Exam: Yes bladder normal to palpation External Female Exam: normal external appearance and normal appearance of the urethra Urethra: normal appearance of the urethra Speculum exam - vagina: normal appearance of the vagina and normal discharge Speculum Exam - Cervix: normal appearance of the cervix Bimanual exam- vagina & uterus: normal bimanual exam, normal palpation, bladder normal to palpation, normal palpation, non-tender and enlarged (Enlarged 11 week size, heart rate 150) Bimanual Exam- Adnexa, other: no masses Skin General skin exam: no rashes or lesions noted Rashes: no rashes Neuro Cognition (Neuro): normal cognition Extrem General: normal to inspection Psych Attitude: cooperative Thought process: Normal thought process present Coding Level of Care Code [place] Diagnoses Enlarged thyroid E04.9 Assessment & Plan Assessment & Plan (1) Enlarged thyroid: Code(s): E04.9 - Nontoxic goiter, unspecified Orders: Orders TSH reflex Free T4 () Today E04.9 - Nontoxic goiter, unspecified CT NG by PCR Today Z34.91 - Encounter for supervision of normal , unspecified, first trimester
[2023-10-19 11:30] VITALS: BP 116/64; BMI 26.6
== END 2023-10-19 12:06 | disposition home or self-care (01) ==
LOC: HO.HWS 11:25
PROVIDERS: PCP Nurse Practitioner; Visit Provider Advanced Practice Midwife
DX: Z34.90 Encounter for supervision of normal pregnancy, unspecified, unspecified trimester (principal)
CPT/HCPCS: 25942; S3005

== ENCOUNTER 2023-10-19 15:46 | Outpatient (REF) | payer BC, SELFPAY ==
[2023-10-19 17:55] LABS: TSH reflex Free T4 (Prenatal) 0.74 uIU/mL (0.32-4.0)
== END 2023-10-19 15:47 | disposition home or self-care (01) ==
LOC: HO.LAB 15:46
PROVIDERS: PCP Nurse Practitioner; Visit Provider Advanced Practice Midwife
DX: E04.9 Nontoxic goiter, unspecified (principal)
CPT/HCPCS: 36415; 84443

== ENCOUNTER 2023-11-15 10:25 | Outpatient (AMB) | payer BC, SELFPAY ==
--- NOTE | 2023-11-15 10:27 | MHC.OFFVISPN ---
Intake Vital Signs 11/15/23 10:28 Height 5 ft 7 in Weight 180 lb BMI 28.2 BP 100/60 Intake Visit Reasons: CHERYL Allergies Sulfa (Sulfonamide Antibiotics) Allergy (Unknown, Verified 11/15/23 10:27) hives Patient : Yes PFSH Medical History Supervision of normal in first trimester Enlarged kidney Early stage of Asthma Surgical History History of ureteropelvic junction repair Family History Paternal Grandmother History of breast cancer Colon cancer Lung cancer Paternal Grandfather CAD (coronary artery disease) Maternal Grandmother Alzheimer's dementia Mother Hypothyroidism Father No problems noted. 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 old G 1 P0 EDC: 05/09/24 by US Blood type: Aneg Problem List: 1. Rh negative 2. AMA, EDC on birthdate 3. enlarged right thyroid lobe-TSH, ref. to PCP, FH of thyroid disorder-mom EPDS=2 at IOB Testing: Panorama: low risk, DOES NOT WANT TO KNOW THE GENDER CBC 1st Tri: 13.7/41.7 28 wk. 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 14.6 wk. CHERYL. Taking PNV, Doing well with no concerns. Good appetite, stays well hydrated. Denies any LOF, VB, abd. pain or urinary symptoms. Reviewed: NT-normal, Panoramic low risk (does not want to know the gender at this time), horizon results-negative . Reviewed: PTL s/s-LOF/Ctx's/VB, when to seek emergent care at [facility]. Discussed seeing option of seeing midwives at [facility] sooner if desires to establish care. Encouraged a healthy well balanced diet, regular walking/exercise in . Hydrate well, 8-10 glasses of water daily. FAS in 4-5 weeks RTO 4 wks. Visit Date: 10/19/23 Last Updated by: Renee Hill CNM Note author: Renee Hill CNM. 11wk. CHERYL. Taking PNV, Doing well with no concerns. Good appetite, stays well hydrated. Denies any LOF, VB, abd. pain or urinary symptoms. OBPE today, enlarged right thyroid lobe plan labs follow up with PCP. EPDS=2. Reviewed: Panoramic labs today. Nuchal lucency ordered appt. on 10/28 at [facility]. Rh neg, to call if any VB. Rhogam use. When to call for any vaginal bleeding or abdominal pain or other concerns. Encouraged a healthy well balanced diet, regular walking/exercise in . Hydrate well, 8-10 glasses of water daily. RTO 4wks. Visit Date: 10/03/23 Last Updated by: Lisbet Fontenot Swati is a pleasant with LMP 08/01/23 (certain) and SUSANNAH 05/07/24, GA today 8w5d. US on 09/21/23 at 7w0d gives SUSANNAH 05/09/24 and GA today of 9w0d. She is taking OTC PNV and reports some occasional nausea, otherwise she feels well. She takes dry crackers for relief. Swati and her are excited about this planned . She is 33 yo and will be 34 yo on or about her SUSANNAH. She was given the Folder. We reviewed danger signs, and first trimester education. Will order NT US and labs today. Pt is scheduled for OB PE 10/19/23 with Kaycee paperwork will be provided for this visit. Swati requests sex to be provided, although she is not completely certain she will want to know the result. Further discussion at the time of results. Swati also reports h/o enlarged kidney without problems at this time. She sees Urologist here at [facility] [place]. Blood type A neg per patient. Pt has no questions at this time. She verbalizes understanding and agrees with plan. Results AMB Urinalysis, Automated UA Leukoctes 1 Efrain/uL Last Edit by MUSTAPHA Prakash on 11/15/23 10:35 UA Nitrite Negative Last Edit by Jovanna Quintero A on 11/15/23 10:35 UA Urobilinogen 0 mg/dL Last Edit by Jovanna Quintero A on 11/15/23 10:35 UA Protein 1 mg/dL Last Edit by Jovanna Quintero, A on 11/15/23 10:35 UA pH 7.5 Last Edit by Jovanna Quintero A on 11/15/23 10:35 UA Blood 0 [place]/uL Last Edit by Jovanna Quintero A on 11/15/23 10:35 UA Specific [place] 1.010 Last Edit by Jovanna Quintero A on 11/15/23 10:35 UA Ketone Negative Last Edit by Jovanna Quintero A on 11/15/23 10:35 UA Bilirubin 0 mg/dL Last Edit by Jovanna Quintero A on 11/15/23 10:35 UA Glucose 0 mg/dL Last Edit by Jovanna Quintero A on 11/15/23 10:35 Results Reviewed Results Reviewed: Laboratory Last Values Urine pH (Auto) 7.5 11/15/23 10:34 Specific [place] (Auto) 1.010 11/15/23 10:34 Urine Protein (Auto) 1 mg/dL 11/15/23 10:34 Glucose (UA)(Auto) 0 mg/dL 11/15/23 10:34 Urine Ketones (Auto) Negative 11/15/23 10:34 Urine Blood (Auto) 0 [place]/uL 11/15/23 10:34 Urine Nitrite (Auto) Negative 11/15/23 10:34 Urine Bilirubin (Auto) 0 mg/dL 11/15/23 10:34 Urine Urobilinogen (Auto) 0 mg/dL 11/15/23 10:34 Leukocyte Esterase (Auto) 1 Efrain/uL 11/15/23 10:34 Coding Level of Care Code Betty Assessment & Plan Assessment & Plan Orders: Orders US OB /maternal detail 12/17/23 Z34.92 - Encounter for supervision of normal , unspecified, second trimester AMB Urinalysis Automated Today Z34.92 - Encounter for supervision of normal , unspecified, second trimester
[2023-11-15 10:28] VITALS: BP 100/60; BMI 28.2
== END 2023-11-15 10:45 | disposition home or self-care (01) ==
PROVIDERS: PCP Nurse Practitioner; Visit Provider Advanced Practice Midwife
DX: Z34.92 Encounter for supervision of normal pregnancy, unspecified, second trimester (principal)
CPT/HCPCS: 25942

== ENCOUNTER → 2023-11-15 10:25 | Outpatient (BNVA) | payer BC, SELFPAY | PROVIDERS: PCP Nurse Practitioner; Visit Provider Advanced Practice Midwife | DX: Z34.02 Encounter for supervision of normal first pregnancy, second trimester (principal) | CPT/HCPCS: 81003; 99212 ==

== ENCOUNTER 2023-12-13 08:21 | Outpatient (AMB) | payer BC, SELFPAY ==
--- NOTE | 2023-12-13 08:28 | A.OFFVISPN_ITS ---
Intake Vital Signs 12/13/23 08:29 Height 5 ft 7 in Weight 185 lb BMI 29.0 BP 104/60 Intake Visit Reasons: lalo Allergies Sulfa (Sulfonamide Antibiotics) Allergy (Unknown, Verified 12/13/23 08:32) hives Patient : Yes [facility] Medical History (Updated 11/15/23 @ 10:46 by Renee Hill CNM) Supervision of normal in second trimester Supervision of normal in first trimester Enlarged kidney Early stage of Asthma Surgical History History of ureteropelvic junction repair Family History Paternal Grandmother History of breast cancer Colon cancer Lung cancer Paternal Grandfather CAD (coronary artery disease) Maternal Grandmother Alzheimer's dementia Mother Hypothyroidism Father No problems noted. 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 old G 1 P0 EDC: 05/09/24 by US Blood type: Aneg Problem List: 1. Rh negative 2. AMA, EDC on birthdate 3. enlarged right thyroid lobe-TSH, ref. to PCP, FH of thyroid disorder-mom EPDS=2 at IOB Testing: Panorama: low risk, DOES NOT WANT TO KNOW THE GENDER CBC 1st Tri: 13.7/41.7 28 wk. 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 Transportation: own car Labor, and Concerns: Labor support: Plan: Infant Feeding Plans: control: OB Visit Log Initial Weight: 165 lb Date -?-?-?-?-?-?-?-?-?-?-?-?- EGA Weight Gest Week Fundal Ht Present FHR move Efface % Edema BP PrePreg We Weight GTT -?-?-?-?-?-?-?-?-?-?-?-?- Glucose LV Protein Blood Type 10/03/23 -?-?-?-?-?-?-?-?-?-?-?-?- 8w 5d 170 lb (+5 lb) 170 lb -?-?-?-?-?-?-?-?-?-?-?-?- 10/19/23 -?-?-?-?-?-?-?-?-?-?-?-?- 11w 0d 170 lb (+5 lb) 11 150 116/64 170 lb -?-?-?-?-?-?-?-?-?-?-?-?- 11/15/23 -?-?-?-?-?-?-?-?-?-?-?-?- 14w 6d 180 lb (+15 lb) 15 150 100/60 180 lb -?-?-?-?-?-?-?-?-?-?-?-?- 12/13/23 -?-?-?-?-?-?-?-?-?-?-?-?- 18w 6d 185 lb (+20 lb) 19 150 104/60 185 lb -?-?-?-?-?-?-?-?-?-?-?-?- Notes Visit Date: 12/13/23 Last Updated by: Renee Hill CNM Note author: Renee Hill CNM. 18.6wk. LALO. Taking PNV, Doing well with no concerns. Good appetite, stays well hydrated. Denies any LOF, VB, abd. pain or urinary symptoms. FAS 12/21/23. Reviewed: LOF/Ctx's/VB, when to seek emergent care. Labs. RTO 4wks. Visit Date: 11/15/23 Last Updated by: Renee Hill CNM Note author: Renee Hill CNM. 14.6 wk. LALO. Taking PNV, Doing well with no concerns. Good appetite, stays well hydrated. Denies any LOF, VB, abd. pain or urinary symptoms. Reviewed: NT-normal, Panoramic low risk (does not want to know the gender at this time), horizon results-negative . Reviewed: PTL s/s-LOF/Ctx's/VB, when to seek emergent care at [facility]. Discussed seeing option of seeing midwives at [facility] sooner if desires to establish care. Encouraged a healthy well balanced diet, regular walking/exercise in . Hydrate well, 8-10 glasses of water daily. FAS in 4-5 weeks RTO 4 wks. Visit Date: 10/19/23 Last Updated by: Renee Hill CNM Note author: Renee Hill CNM. 11wk. LALO. Taking PNV, Doing well with no concerns. Good appetite, stays well hydrated. Denies any LOF, VB, abd. pain or urinary symptoms. OBPE today, enlarged right thyroid lobe plan labs follow up with PCP. EPDS=2. Reviewed: Panoramic labs today. Nuchal lucency ordered appt. on 10/28 at [facility]. Rh neg, to call if any VB. Rhogam use. When to call for any vaginal bleeding or abdominal pain or other concerns. Encouraged a healthy well balanced diet, regular walking/exercise in . Hydrate well, 8-10 glasses of water daily. RTO 4wks. Visit Date: 10/03/23 Last Updated by: Lisbet Storey Po [place] is a pleasant with LMP 08/01/23 (certain) and SUSANNAH 05/07/24, GA today 8w5d. US on 09/21/23 at 7w0d gives SUSANNAH 05/09/24 and GA today of 9w0d. She is taking OTC PNV and reports some occasional nausea, otherwise she feels well. She takes dry crackers for relief. Swati and her are excited about this planned . She is 33 yo and will be 34 yo on or about her SUSANNAH. She was given the Folder. We reviewed danger signs, and first trimester education. Will order NT US and labs today. Pt is scheduled for OB PE 10/19/23 with Kaycee paperwork will be provided for this visit. Swati requests sex to be provided, although she is not completely certain she will want to know the result. Further discussion at the time of results. Swati also reports h/o enlarged kidney without problems at this time. She sees Urologist here at [facility]. Blood type A neg per patient. Pt has no questions at this time. She verbalizes understanding and agrees with plan. Results AMB Urinalysis, Automated UA Leukoctes 2 Efrain/uL Last Edit by MUSTAPHA Prakash on 12/13/23 08:33 UA Nitrite Negative Last Edit by MUSTAPHA Prakash on 12/13/23 08:33 UA Urobilinogen 0 mg/dL Last Edit by MUSTAPHA Prakash on 12/13/23 08:3 3 UA Protein 1 mg/dL Last Edit by MUSTAPHA Prakash on 12/13/23 08:33 UA pH 7.0 Last Edit by MUSTAPHA Prakash on 12/13/23 08:33 UA Blood 0.5 [place]/uL Last Edit by MUSTAPHA Prakash on 12/13/23 08:33 UA Specific [place] 1.015 Last Edit by MUSTAPHA Prakash on 12/13/23 08:33 UA Ketone Negative Last Edit by MUSTAPHA Prakash on 12/13/23 08:33 UA Bilirubin 0 mg/dL Last Edit by MUSTAPHA Prakash on 12/13/23 08:33 UA Glucose 0 mg/dL Last Edit by MUSTAPHA Prakash on 12/13/23 08:33 Results Reviewed Results Reviewed: Laboratory Last Values Urine pH (Auto) 7.0 12/13/23 08:33 Specific [place] (Auto) 1.015 12/13/23 08:33 Urine Protein (Auto) 1 mg/dL 12/13/23 08:33 Glucose (UA)(Auto) 0 mg/dL 12/13/23 08:33 Urine Ketones (Auto) Negative 12/13/23 08:33 Urine Blood (Auto) 0.5 [place]/uL 12/13/23 08:33 Urine Nitrite (Auto) Negative 12/13/23 08:33 Urine Bilirubin (Auto) 0 mg/dL 12/13/23 08:33 Urine Urobilinogen (Auto) 0 mg/dL 12/13/23 08:33 Leukocyte Esterase (Auto) 2 Efrain/uL 12/13/23 08:33 Coding Level of Care Code [place] Assessment & Plan Assessment & Plan Orders: Orders AMB Urinalysis Automated Today Z34.92 - Encounter for supervision of normal , unspecified, second trimester
[2023-12-13 08:29] VITALS: BP 104/60; BMI 29.0
== END 2023-12-13 08:51 | disposition home or self-care (01) ==
PROVIDERS: PCP Nurse Practitioner; Visit Provider Advanced Practice Midwife
DX: Z34.92 Encounter for supervision of normal pregnancy, unspecified, second trimester (principal)
CPT/HCPCS: 25942

== ENCOUNTER → 2023-12-13 08:21 | Outpatient (BNVA) | payer BC, SELFPAY | PROVIDERS: PCP Nurse Practitioner; Visit Provider Advanced Practice Midwife | DX: Z34.02 Encounter for supervision of normal first pregnancy, second trimester (principal) | CPT/HCPCS: 81003; 99212 ==

== ENCOUNTER 2024-01-10 12:40 | Outpatient (AMB) | payer BC, SELFPAY ==
--- NOTE | 2024-01-10 12:45 | A.OFFVISPN_ITS ---
Intake Vital Signs 01/10/24 12:50 Height 5 ft 7 in Weight 190 lb BMI 29.8 BP 112/62 Intake Visit Reasons: CHERYL Roll Cleaner Required: No Allergies Sulfa (Sulfonamide Antibiotics) Allergy (Unknown, Verified 01/10/24 12:51) hives Is last menstrual period known: Yes Last menstrual period: 08/01/23 Post menopausal: No Patient : Yes PFSH Medical History Supervision of normal in second trimester Supervision of normal in first trimester Enlarged kidney Early stage of Asthma Surgical History History of ureteropelvic junction repair Family History Paternal Grandmother History of breast cancer Colon cancer Lung cancer Paternal Grandfather CAD (coronary artery disease) Maternal Grandmother Alzheimer's dementia Mother Hypothyroidism Father No problems noted. 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 Current occupational exposures/hazards: No Sexual orientation: Straight/Heterosexual Gender identity: Female Female Reproductive History Menstrual Age of Menarche: 11 Date of last menstrual period: 08/01/23 control method: none Total pregnancies: 1 Date of last pap smear: 12/30/20 (negative) History of abnormal pap smear: No History History 1 Elective abortions 0 Para 0 Spontaneous abortions 0 Hx # Term Pregnancies 0 Ectopic pregnancies 0 Hx # Pregnancies 0 Multiple births 0 Questionnaire History History : 1 Visit SUSANNAH Calculator Estimated Delivery Date Method Current WG Current Estimate 05/09/24 Ultrasound #1 22w 6d Other Estimates 05/07/24 LMP (Certain) 23w 1d Expected Delivery Route/Plan Specific Issues/Plans 33 Yr. old G 1 P0 EDC: 05/09/24 by US Blood type: Aneg Problem List: 1. Rh negative 2. AMA, EDC on birthdate 3. enlarged right thyroid lobe-TSH, ref. to PCP, FH of thyroid disorder-mom EPDS=2 at IOB Testing: Panorama: low risk CBC 1st Tri: 13.7/41.7 28 wk. 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 car Labor, and Concerns: Labor support: Plan: Feeding Plans: control: OB Visit Log Initial Weight: 165 lb Date -?-?-?-?-?-?-?-?-?-?-?-?- EGA Weight Gest Week Fundal Ht Present FHR move Efface % Edema BP PrePreg We Weight GTT -?-?-?-?-?-?-?-?-?-?-?-?- Glucose LV Protein Blood Type 10/03/23 -?-?-?-?-?-?-?-?-?-?-?-?- 8w 5d 170 lb (+5 lb) 170 lb -?-?-?-?-?-?-?-?-?-?-?-?- 10/19/23 -?-?-?-?-?-?-?-?-?-?-?-?- 11w 0d 170 lb (+5 lb) 11 150 116/64 170 lb -?-?-?-?-?-?-?-?-?-?-?-?- 11/15/23 -?-?-?-?-?-?-?-?-?-?-?-?- 14w 6d 180 lb (+15 lb) 15 150 100/60 180 lb -?-?-?-?-?-?-?-?-?-?-?-?- 12/13/23 -?-?-?-?-?-?-?-?-?-?-?-?- 18w 6d 185 lb (+20 lb) 19 150 104/60 185 lb -?-?-?-?-?-?-?-?-?-?-?-?- 01/10/24 -?-?-?-?-?-?-?-?-?-?-?-?- 22w 6d 190 lb (+25 lb) 22 150 active 112/62 190 lb -?-?-?-?-?-?-?-?-?-?-?-?- Notes Visit Date: 01/10/24 Last Updated by: Renee Hill CNM Note author: Renee Hill CNM. 22.6wk. CHERYL. Taking PNV, Doing well with no concerns. Good appetite, stays well hydrated. Denies any LOF, VB, abd. pain or urinary symptoms. Good FM. Having a girl. Reviewed: FAS PTL s/s-LOF/Ctx's/VB, PEC s/s when to seek emergent care. discomforts, self help measures. FM and when to call the office for further eval. Hydrate well, 10-12 glasses of water daily. Options for classes. 28wk labs at next visit, A neg. Rhogam to follow. RTO 4wks. Visit Date: 12/13/23 Last Updated by: Renee Hill CNM Note author: Renee Hill CNM. 18.6wk. CHERYL. Taking PNV, Doing well with no concerns. Good appetite, stays well hydrated. Denies any LOF, VB, abd. pain or urinary symptoms. FAS 12/21/23. Reviewed: LOF/Ctx's/VB, when to seek emergent care. Labs. RTO 4wks. Visit Date: 11/15/23 Last Updated by: Renee Hill CNM Note author: Renee Hill CNM. 14.6 wk. CHERYL. Taking PNV, Doing well with no concerns. Good appetite, stays well hydrated. Denies any LOF, VB, abd. pain or urinary symptoms. Reviewed: NT-normal, Panoramic low risk (does not want to know the gender at this time), horizon results-negative . Reviewed: PTL s/s-LOF/Ctx's/VB, when to seek emergent care at [facility]. Discussed seeing option of seeing midwives at [facility] sooner if desires to establish care. Encouraged a healthy well balanced diet, regular walking/exercise in . Hydrate well, 8-10 glasses of water daily. FAS in 4-5 weeks RTO 4 wks. Visit Date: 10/19/23 Last Updated by: Renee Hill CNM Note author: Renee Hill CNM. 11wk. CHERYL. Taking PNV, Doing well with no concerns. Good appetite, stays well hydrated. Denies any LOF, VB, abd. pain or urinary symptoms. OBPE today, enlarged right thyroid lobe plan labs follow up with PCP. EPDS=2. Reviewed: Panoramic labs today. Nuchal lucency ordered appt. on 10/28 at [facility]. Rh neg, to call if any VB. Rhogam use. When to call for any vaginal bleeding or abdominal pain or other concerns. Encouraged a healthy well balanced diet, regular walking/exercise in . Hydrate well, 8-10 glasses of water daily. RTO 4wks. Visit Date: 10/03/23 Last Updated by: Lisbet Fontenot Swati is a pleasant with LMP 08/01/23 (certain) and SUSANNAH 05/07/24, GA today 8w5d. US on 09/21/23 at 7w0d gives SUSANNAH 05/09/24 and GA today of 9w0d. She is taking OTC PNV and reports some occasional nausea, otherwise she feels well. She takes dry crackers for relief. Swati and her are excited about this planned . She is 33 yo and will be 34 yo on or about her SUSANNAH. She was given the Folder. We reviewed danger signs, and first trimester education. Will order NT US and labs today. Pt is scheduled for OB PE 10/19/23 with Kaycee paperwork will be provided for this visit. Swati requests sex to be provided, although she is not completely certain she will want to know the result. Further discussion at the time of results. Swati also reports h/o enlarged kidney without problems at this time. She sees Urologist here at [facility] [place]. Blood type A neg per patient. Pt has no questions at this time. She verbalizes understanding and agrees with plan. Coding Level of Care Code [place] Assessment & Plan Assessment & Plan Orders: Orders Complete Blood Count no Diff 4 Weeks Z34.92 - Encounter for supervision of normal , unspecified, second trimester Syphilis Screen Today Z20.2 - Contact with and (suspected) exposure to infections with a predominantly sexual mode of transmission, Z34.92 - Encounter for supervision of normal , unspecified, second trimester Glucose 1 Hour PP 50gm Dose Today Z34.92 - Encounter for supervision of normal , unspecified, second trimester Antibody Screen Today Z34.92 - Encounter for supervision of normal , unspecified, second trimester
[2024-01-10 12:50] VITALS: BP 112/62; BMI 29.8
== END 2024-01-10 13:05 | disposition home or self-care (01) ==
LOC: HO.HWS 12:40
PROVIDERS: PCP Nurse Practitioner; Visit Provider Advanced Practice Midwife
DX: Z34.90 Encounter for supervision of normal pregnancy, unspecified, unspecified trimester (principal)
CPT/HCPCS: 25942

== ENCOUNTER → 2024-01-10 12:40 | Outpatient (BNVA) | payer BC, SELFPAY | PROVIDERS: PCP Nurse Practitioner; Visit Provider Advanced Practice Midwife | DX: O09.512 Supervision of elderly primigravida, second trimester (principal); Z3A.22 22 weeks gestation of pregnancy | CPT/HCPCS: 99212 ==

== ENCOUNTER 2024-02-08 12:45 | Outpatient (AMB) | payer BC, SELFPAY ==
[2024-02-08 12:47] VITALS: BP 124/80; BMI 31.0
--- NOTE | 2024-02-08 12:47 | A.OFFVISPN_ITS ---
Intake Vital Signs 02/08/24 12:47 Height 5 ft 7 in Weight 198 lb BMI 31.0 BP 124/80 Blood Pressure Location Rt brachial Position Sitting Intake Visit Reasons: lalo Allergies Sulfa (Sulfonamide Antibiotics) Allergy (Unknown, Verified 01/10/24 12:51) hives PFSH Medical History Supervision of normal in second trimester Supervision of normal in first trimester Enlarged kidney Early stage of Asthma Surgical History History of ureteropelvic junction repair Family History Paternal Grandmother History of breast cancer Colon cancer Lung cancer Paternal Grandfather CAD (coronary artery disease) Maternal Grandmother Alzheimer's dementia Mother Hypothyroidism Father No problems noted. 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 old G 1 P0 EDC: 05/09/24 by Blood type: Aneg Problem List: 1. Rh negative 2. AMA, EDC on birthdate 3. enlarged right thyroid lobe-TSH, ref. to PCP, FH of thyroid disorder-mom EPDS=2 at IOB Testing: Panorama: low risk CBC 1st Tri: 13.7/41.7 28 wk. 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 car Labor, and Concerns: Labor support: Plan: Feeding Plans: control: OB Visit Log Initial Weight: 165 lb Date -?-?-?-?-?-?-?-?-?-?-?-?- EGA Weight Gest Week Fundal Ht Present FHR move Efface % Edema BP PrePreg We Weight GTT -?-?-?-?-?-?-?-?-?-?-?-?- Glucose LV Protein Blood Type 10/03/23 -?-?-?-?-?-?-?-?-?-?-?-?- 8w 5d 170 lb (+5 lb) 170 lb -?-?-?-?-?-?-?-?-?-?-?-?- 10/19/23 -?-?-?-?-?-?-?-?-?-?-?-?- 11w 0d 170 lb (+5 lb) 11 150 116/64 170 lb -?-?-?-?-?-?-?-?-?-?-?-?- 11/15/23 -?-?-?-?-?-?-?-?-?-?-?-?- 14w 6d 180 lb (+15 lb) 15 150 100/60 180 lb -?-?-?-?-?-?-?-?-?-?-?-?- 12/13/23 -?-?-?-?-?-?-?-?-?-?-?-?- 18w 6d 185 lb (+20 lb) 19 150 104/60 185 lb -?-?-?-?-?-?-?-?-?-?-?-?- 01/10/24 -?-?-?-?-?-?-?-?-?-?-?-?- 22w 6d 190 lb (+25 lb) 22 150 active 112/62 190 lb -?-?-?-?-?-?-?-?-?-?-?-?- 02/08/24 -?-?-?-?-?-?-?-?-?-?-?-?- 27w 0d 198 lb (+33 lb) 27.5 150 active 124/80 198 lb -?-?-?-?-?-?-?-?-?-?-?-?- Notes Visit Date: 02/08/24 Last Updated by: Renee Hill CNM Note author: Renee Hill CNM. 27wk. LALO. Taking PNV, Doing well with no concerns. Good appetite, stays well hydrated. Denies any LOF, VB, abd. pain or urinary symptoms. A negative plan 28 week labs next week and RhoGAM to follow. Appointments to be scheduled RTO 2 wks. Visit Date: 01/10/24 Last Updated by: Renee Hill CNM Note author: Renee Hill CNM. 22.6wk. LALO. Taking PNV, Doing well with no concerns. Good appetite, stays well hydrated. Denies any LOF, VB, abd. pain or urinary symptoms. Good FM. Having a girl. Reviewed: FAS PTL s/s-LOF/Ctx's/VB, PEC s/s when to seek emergent care. discomforts, self help measures. FM and when to call the office for further eval. Hydrate well, 10-12 glasses of water daily. Options for classes. 28wk labs at next visit, A neg. Rhogam to follow. RTO 4wks. Visit Date: 12/13/23 Last Updated by: Renee Hill CNM Note author: Renee Hill CNM. 18.6wk. LALO. Taking PNV, Doing well with no concerns. Good appetite, stays well hydrated. Denies any LOF, VB, abd. pain or urinary symptoms. FAS 12/21/23. Reviewed: LOF/Ctx's/VB, when to seek emergent care. Labs. RTO 4wks. Visit Date: 11/15/23 Last Updated by: Renee Hill CNM Note author: Renee Hill CNM. 14.6 wk. LALO. Taking PNV, Doing well with no concerns. Good appetite, stays well hydrated. Denies any LOF, VB, abd. pain or urinary symptoms. Reviewed: NT-normal, Panoramic low risk (does not want to know the gender at this time), horizon results-negative . Reviewed: PTL s/s-LOF/Ctx's/VB, [facility]. Discussed seeing option of seeing midwives at [facility] sooner if desires to establish care. Encouraged a healthy well balanced diet, regular walking/exercise in . Hydrate well, 8-10 glasses of water daily. FAS in 4-5 weeks RTO 4 wks. Visit Date: 10/19/23 Last Updated by: Renee Hill CNM Note author: Renee Hill CNM. 11wk. LALO. Taking PNV, Doing well with no concerns. Good appetite, stays well hydrated. Denies any LOF, VB, abd. pain or urinary symptoms. OBPE today, enlarged right thyroid lobe plan labs follow up with PCP. EPDS=2. Reviewed: Panoramic labs today. Nuchal lucency ordered appt. on 10/28 at [facility]. Rh neg, to call if any VB. Rhogam use. When to call for any vaginal bleeding or abdominal pain or other concerns. Encouraged a healthy well balanced diet, regular walking/exercise in . Hydrate well, 8-10 glasses of water daily. RTO 4wks. Visit Date: 10/03/23 Last Updated by: Lisbet Fontenot Swati is a pleasant with LMP 08/01/23 (certain) and SUSANNAH 05/07/24, GA today 8w5d. US on 09/21/23 at 7w0d gives SUSANNAH 05/09/24 and GA today of 9w0d. She is taking OTC PNV and reports some occasional nausea, otherwise she feels well. She takes dry crackers for relief. Swati and her are excited about this planned . She is 33 yo and will be 34 yo on or about her SUSANNAH. She was given the Folder. We reviewed danger signs, and first trimester education. Will order NT US and labs today. Pt is scheduled for OB PE 10/19/23 with Kaycee paperwork will be provided for this visit. Swati requests sex to be provided, although she is not completely certain she will want to know the result. Further discussion at the time of results. Swati also reports h/o enlarged kidney without problems at this time. She sees Urologist here at [facility]. Blood type A neg per patient. Pt has no questions at this time. She verbalizes understanding and agrees with plan. Results AMB Urinalysis, Automated UA Leukoctes 15 Efrain/uL Last Edit by Kristen Salazar CMA on 02/08/24 12:53 UA Nitrite Negative Last Edit by Kristen Salazar, JAMIA on 02/08/24 12:53 UA Urobilinogen 0 mg/dL Last Edit by Kristen Salazar, JAMIA on 02/08/24 12:53 UA Protein 0 mg/dL Last Edit by Kristen Salazar, JAMIA on 02/08/24 12:53 UA pH 7.5 Last Edit by Kristen Salazar, JAMIA on 02/08/24 12:53 UA Blood 0 [place]/uL Last Edit by Kristen Salazar, JAMIA on 02/08/24 12:53 UA Specific [place] 1.005 Last Edit by Kristen Salazar CMA on 02/08/24 12:53 UA Ketone Negative Last Edit by Kristen Salazar CMA on 02/08/24 12:53 UA Bilirubin 0 mg/dL Last Edit by Kristen Salazar CMA on 02/08/24 12:53 UA Glucose 0 mg/dL Last Edit by Kristen Salazar CMA on 02/08/24 12:53 Coding Level of Care Code [place] Assessment & Plan Assessment & Plan Orders: Orders AMB Urinalysis Automated Today Z13.9 - Encounter for screening, unspecified TSH reflex Free T4 () Today E04.9 - Nontoxic goiter, unspecified
== END 2024-02-08 13:14 | disposition home or self-care (01) ==
LOC: HO.HWS 12:45
PROVIDERS: PCP Nurse Practitioner; Visit Provider Advanced Practice Midwife
DX: Z3A.24 24 weeks gestation of pregnancy (principal)
CPT/HCPCS: 25942

== ENCOUNTER → 2024-02-08 12:45 | Outpatient (BNVA) | payer BC, SELFPAY | PROVIDERS: PCP Nurse Practitioner; Visit Provider Advanced Practice Midwife | DX: O99.282 Endocrine, nutritional and metabolic diseases complicating pregnancy, second trimester (principal); E04.9 Nontoxic goiter, unspecified; Z3A.28 28 weeks gestation of pregnancy | CPT/HCPCS: 81003; 99212 ==

== ENCOUNTER 2024-02-11 15:45 | Outpatient (REF) | payer BC, SELFPAY ==
[2024-02-11 17:22] LABS: Hematocrit 36.6 % (37.0-47.0); Mean Corpuscular HGB Conc 32.8 g/dl (31.0-35.0); Mean Corpuscular Hemoglobin 28.1 pg (27.0-33.0); Mean Corpuscular Volume 85.7 fL (80.0-98.0); Mean Platelet Volume 9.3 fL (9.4-12.3); Platelet Count 272 X10*3/uL (160-400); Red Blood Count 4.27 X10*6/uL (4.20-5.50); Red Cell Distribution Width 13.2 % (11.0-16.0); White Blood Count 14.8 X10*3/uL (4.8-10.8)
[2024-02-11 18:05] LABS: Glucose 1 Hour PP 50gm Dose 132 mg/dL (60-140)
[2024-02-11 18:24] LABS: TSH reflex Free T4 (Prenatal) 0.79 uIU/mL (0.32-4.0)
[2024-02-12 07:51] LABS: Syphilis Screen Nonreactive (Nonreactive)
== END 2024-02-11 15:46 | disposition home or self-care (01) ==
LOC: HO.LAB 15:45
PROVIDERS: PCP Nurse Practitioner; Visit Provider Advanced Practice Midwife
DX: Z20.2 Contact with and (suspected) exposure to infections with a predominantly sexual mode of transmission (principal); Z34.92 Encounter for supervision of normal pregnancy, unspecified, second trimester; E04.9 Nontoxic goiter, unspecified
CPT/HCPCS: 36415; 82950; 84443; 85027; 86780; 86850

== ENCOUNTER 2024-02-26 10:30 | Outpatient (AMB) | payer BC, SELFPAY ==
--- NOTE | 2024-02-26 10:40 | MHC.OFFVISPN ---
Intake Vital Signs 02/26/24 10:41 Height 5 ft 7 in Weight 197 lb BMI 30.9 BP 112/64 Intake Visit Reasons: CHERYL 29 weeks Intake Note: EPDS 1 Allergies Sulfa (Sulfonamide Antibiotics) Allergy (Unknown, Verified 02/26/24 10:41) hives Patient : Yes [facility] Medical History (Updated 02/26/24 @ 12:06 by Renee Hill CNM) Supervision of normal in second trimester Enlarged kidney Asthma Surgical History History of ureteropelvic junction repair Family History Paternal Grandmother History of breast cancer Colon cancer Lung cancer Paternal Grandfather CAD (coronary artery disease) Maternal Grandmother Alzheimer's dementia Mother Hypothyroidism Father No problems noted. 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 Current occupational exposures/hazards: No Sexual orientation: Straight/Heterosexual Gender identity: Female Female Reproductive History Menstrual Age of Menarche: 11 History History 1 Elective abortions 0 Para 0 Spontaneous abortions 0 Hx # Term Pregnancies 0 Ectopic pregnancies 0 Hx # Pregnancies 0 Multiple births 0 Questionnaire Neponset Depression Neponset Depression Scale I have been able to laugh and see the funny side of things: As much as I always could I have looked forward with enjoyment to things: As much as I ever did I have blamed myself unnecessarily when things went wrong: No, never I have been anxious or worried for no reason: Hardly ever I have felt scared of panicky for no very good reason at all: No, not at all Things have been getting on top of me: No, I have been coping as well as ever I have been so unhappy that I have had difficulty sleeping: No, not at all I have felt sad or miserable: No, not at all I have been so unhappy that I have been crying: No, never The thought of harming myself has occurred to me: Never 1 Visit SUSANNAH Calculator Estimated Delivery Date Method Current WG Current Estimate 05/09/24 Ultrasound #1 29w 4d Other Estimates 05/07/24 LMP (Certain) 29w 6d Expected Delivery Route/Plan Specific Issues/Plans 33 Yr. old G 1 P0 EDC: 05/09/24 by US Blood type: Aneg Problem List: 1. Rh negative, Rhogam 02/26/24 2. AMA, EDC on birthdate 3. enlarged right thyroid lobe-TSH, ref. to PCP, FH of thyroid disorder-mom EPDS=2 at IOB Testing: Panorama: low risk CBC 1st Tri: 13.7/41.7 28 wk. HCT: 36.6 Glucose- 132 GBS: Vaccinations: Flu: UTD Covid: Vax x4, Covid+ . Tdap: RSV: [id number]: Education/Services WIC: not eligible CBE: [facility] info given, tour and classes book. 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 Transportation: own car Labor, and Concerns: Labor support: Plan: natural Infant Feeding Plans: control: Nexplanon OB Visit Log Initial Weight: 165 lb Date <del>?</del> EGA Weight Gest Week Fundal Ht Present FHR move Efface % Edema BP PrePreg We Weight GTT <del>?</del> Glucose LV Protein Blood Type 10/03/23 <del>?</del> 8w 5d 170 lb (+5 lb) 170 lb <del>?</del> 10/19/23 <del>?</del> 11w 0d 170 lb (+5 lb) 11 150 116/64 170 lb <del>?</del> 04/04/24 <del>?</del> 14w 6d 180 lb (+15 lb) 15 150 100/60 180 lb <del>?</del> 12/13/23 <del>?</del> 18w 6d 185 lb (+20 lb) 19 150 104/60 185 lb <del>?</del> 01/10/24 <del>?</del> 22w 6d 190 lb (+25 lb) 22 150 active 112/62 190 lb <del>?</del> 02/08/24 <del>?</del> 27w 0d 198 lb (+33 lb) 27.5 150 active 124/80 198 lb <del>?</del> 02/26/24 <del>?</del> 29w 4d 197 lb (+32 lb) 30 140 active 112/64 197 lb <del>?</del> Notes Visit Date: 02/26/24 Last Updated by: Renee Hill CNM Note author: Renee Hill CNM. 29.4 wk. CHERYL. Taking PNV, Doing well with no concerns. Good appetite, stays well hydrated. Denies any LOF, VB, abd. pain or urinary symptoms. She reports a mild case of COVID last week. Reviewed: PTL s/s-LOF/Ctx's/VB, when to seek emergent care. discomforts, self help measures. FM and when to call the office for further eval. Encouraged a healthy well balanced diet, regular walking/exercise in . Hydrate well, 10-12 glasses of water daily. RhoGAM today. Plans Tdap at her next visit. RTO 2 wks. Visit Date: 02/08/24 Last Updated by: Renee Hill CNM Note author: Renee Hill CNM. 27wk. CHERYL. Taking PNV, Doing well with no concerns. Good appetite, stays well hydrated. Denies any LOF, VB, abd. pain or urinary symptoms. A negative plan 28 week labs next week and RhoGAM to follow. Appointments to be scheduled RTO 2 wks. Visit Date: 01/10/24 Last Updated by: Renee Hill CNM Note author: Renee Hill CNM. 22.6wk. CHERYL. Taking PNV, Doing well with no concerns. Good appetite, stays well hydrated. Denies any LOF, VB, abd. pain or urinary symptoms. Good FM. Having a girl. Reviewed: FAS PTL s/s-LOF/Ctx's/VB, PEC s/s when to seek emergent care. discomforts, self help measures. FM and when to call the office for further eval. Hydrate well, 10-12 glasses of water daily. Options for classes. 28wk labs at next visit, A neg. Rhogam to follow. RTO 4wks. Visit Date: 12/13/23 Last Updated by: Renee Hill CNM Note author: Renee Hill CNM. 18.6wk. CHERYL. Taking PNV, Doing well with no concerns. Good appetite, stays well hydrated. Denies any LOF, VB, abd. pain or urinary symptoms. FAS 12/21/23. Reviewed: LOF/Ctx's/VB, when to seek emergent care. Labs. RTO 4wks. Visit Date: 11/15/23 Last Updated by: Renee Hill CNM Note author: Renee Hill CNM. 14.6 wk. CHERYL. Taking PNV, Doing well with no concerns. Good appetite, stays well hydrated. Denies any LOF, VB, abd. pain or urinary symptoms. Reviewed: NT-normal, Panoramic low risk (does not want to know the gender at this time), horizon results-negative . Reviewed: PTL s/s-LOF/Ctx's/VB, when to seek emergent care at [facility]. Discussed seeing option of seeing midwives at [facility] sooner if desires to establish care. Encouraged a healthy well balanced diet, regular walking/exercise in . Hydrate well, 8-10 glasses of water daily. FAS in 4-5 weeks RTO 4 wks. Visit Date: 10/19/23 Last Updated by: Renee Hill CNM Note author: Renee Hill CNM. 11wk. CHERYL. Taking PNV, Doing well with no concerns. Good appetite, stays well hydrated. Denies any LOF, VB, abd. pain or urinary symptoms. OBPE today, enlarged right thyroid lobe plan labs follow up with PCP. EPDS=2. Reviewed: Panoramic labs today. Nuchal lucency ordered appt. on 10/28 at [facility]. Rh neg, to call if any VB. Rhogam use. When to call for any vaginal bleeding or abdominal pain or other concerns. Encouraged a healthy well balanced diet, regular walking/exercise in . Hydrate well, 8-10 glasses of water daily. RTO 4wks. Visit Date: 10/03/23 Last Updated by: Lisbet Fontenot Swati is a pleasant with LMP 08/01/23 (certain) and SUSANNAH 05/07/24, GA today 8w5d. US on 09/21/23 at 7w0d gives SUSANNAH 05/09/24 and GA today of 9w0d. She is taking OTC PNV and reports some occasional nausea, otherwise she feels well. She takes dry crackers for relief. Swati and her are excited about this planned . She is 33 yo and will be 34 yo on or about her SUSANNAH. She was given the Folder. We reviewed danger signs, and first trimester education. Will order NT US and labs today. Pt is scheduled for OB PE 10/19/23 with Kaycee paperwork will be provided for this visit. Swati requests sex to be provided, although she is not completely certain she will want to know the result. Further discussion at the time of results. Swati also reports h/o enlarged kidney without problems at this time. [place] [facility] [place] Blood type A neg per patient. Pt has no questions at this time. She verbalizes understanding and agrees with plan. Results AMB Urinalysis, Automated UA Leukoctes 3 Efrain/uL Last Edit by MUSTAPHA Prakash on 02/26/24 10:51 UA Nitrite Negative Last Edit by Jovanna Quintero A on 02/26/24 10:51 UA Urobilinogen 0 mg/dL Last Edit by Jovanna Quintero A on 02/26/24 10:51 UA Protein 1 mg/dL Last Edit by Jovanna Quintero, A on 02/26/24 10:51 UA pH 6.5 Last Edit by Jovanna Quintero [facility] on 02/26/24 10:51 UA Blood 0 [place]/uL Last Edit by Jovanna Quintero A on 02/26/24 10:51 UA Specific [place] 1.010 Last Edit by Jovanna Quintero [facility] on 02/26/24 10:51 UA Ketone Negative Last Edit by Jovanna Quintero [facility] on 02/26/24 10:51 UA Bilirubin 0 mg/dL Last Edit by Jovanna Quintero [facility] on 02/26/24 10:51 UA Glucose 0 mg/dL Last Edit by Jovanna Quintero [facility] on 02/26/24 10:51 Results Reviewed Results Reviewed: Laboratory Last Values Urine pH (Auto) 6.5 02/26/24 10:48 Specific [place] (Auto) 1.010 02/26/24 10:48 Urine Protein (Auto) 1 mg/dL 02/26/24 10:48 Glucose (UA)(Auto) 0 mg/dL 02/26/24 10:48 Urine Ketones (Auto) Negative 02/26/24 10:48 Urine Blood (Auto) 0 [place]/uL 02/26/24 10:48 Urine Nitrite (Auto) Negative 02/26/24 10:48 Urine Bilirubin (Auto) 0 mg/dL 02/26/24 10:48 Urine Urobilinogen (Auto) 0 mg/dL 02/26/24 10:48 Leukocyte Esterase (Auto) 3 Efrain/uL 02/26/24 10:48 Coding Level of Care Code Cool Diagnoses Need for rhogam due to Rh negative mother Z29.13 Assessment & Plan Assessment & Plan (1) Need for rhogam due to Rh negative mother: Code(s): Z29.13 - Encounter for prophylactic Rho(D) immune globulin Category: Medical Orders: Orders AMB Urinalysis Automated Today Z34.93 - Encounter for supervision of normal , unspecified, third trimester AMB RhoGAM Injection Today Z29.13 - Encounter for prophylactic Rho(D) immune globulin, Z34.92 - Encounter for supervision of normal , unspecified, second trimester Medications: New RhoGAM Ultra-Filtered PLUS (rho(D) immune globulin) 300 mcg IM ONCE 1 ea 0RF NS Z29.13 - Encounter for prophylactic Rho(D) immune globulin, Z34.92 - Encounter for supervision of normal , unspecified, second trimester
[2024-02-26 10:41] VITALS: BP 112/64; BMI 30.9
== END 2024-02-26 11:40 | disposition home or self-care (01) ==
LOC: HO.HWS 10:30
PROVIDERS: PCP Nurse Practitioner; Visit Provider Advanced Practice Midwife
DX: Z34.92 Encounter for supervision of normal pregnancy, unspecified, second trimester (principal); Z29.13 Encounter for prophylactic Rho(D) immune globulin; Z34.93 Encounter for supervision of normal pregnancy, unspecified, third trimester
CPT/HCPCS: 25942

== ENCOUNTER → 2024-02-26 10:30 | Outpatient (BNVA) | payer BC, SELFPAY | PROVIDERS: PCP Nurse Practitioner; Visit Provider Advanced Practice Midwife | DX: O09.513 Supervision of elderly primigravida, third trimester (principal); O36.0930 Maternal care for other rhesus isoimmunization, third trimester, not applicable or unspecified; Z3A.29 29 weeks gestation of pregnancy | CPT/HCPCS: 81003; 96372; 99212 ==

== ENCOUNTER 2024-03-18 12:31 | Outpatient (AMB) | payer BC, SELFPAY ==
--- NOTE | 2024-03-18 12:38 | MHC.OFFVISPN ---
Intake Vital Signs 03/18/24 12:39 Height 5 ft 7 in Weight 205 lb BMI 32.1 BP 100/64 Intake Visit Reasons: lalo Allergies Sulfa (Sulfonamide Antibiotics) Allergy (Unknown, Verified 03/18/24 12:38) hives Patient : Yes PFSH Medical History (Updated 02/26/24 @ 12:06 by Renee Hill CNM) Supervision of normal in second trimester Enlarged kidney Asthma Surgical History History of ureteropelvic junction repair Family History Paternal Grandmother History of breast cancer Colon cancer Lung cancer Paternal Grandfather CAD (coronary artery disease) Maternal Grandmother Alzheimer's dementia Mother Hypothyroidism Father No problems noted. 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 old G 1 P0 EDC: 05/09/24 by US Blood type: Aneg Problem List: 1. Rh negative, Rhogam 02/26/24 2. AMA, EDC on birthdate 3. enlarged right thyroid lobe-TSH, ref. to PCP, FH of thyroid disorder-mom EPDS=2 at IOB Testing: Panorama: low risk CBC 1st Tri: 13.7/41.7 28 wk. HCT: 36.6 Glucose- 132 GBS: Vaccinations: Flu: UTD Covid: Vax x4, Covid+ . Tdap: RSV: [id number]: Education/Services WIC: not eligible CBE: [facility] info given, tour and classes book. 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 Transportation: own car Labor, and Concerns: Labor support: Plan: natural Feeding Plans: control: Nexplanon OB Visit Log Initial Weight: 165 lb Date <del>?</del> EGA Weight Gest Week Fundal Ht Present FHR move Efface % Edema BP PrePreg We Weight GTT <del>?</del> Glucose LV Protein Blood Type 10/03/23 <del>?</del> 8w 5d 170 lb (+5 lb) 170 lb <del>?</del> 10/19/23 <del>?</del> 11w 0d 170 lb (+5 lb) 11 150 116/64 170 lb <del>?</del> 11/15/23 <del>?</del> 14w 6d 180 lb (+15 lb) 15 150 100/60 180 lb <del>?</del> 12/13/23 <del>?</del> 18w 6d 185 lb (+20 lb) 19 150 104/60 185 lb <del>?</del> 01/10/24 <del>?</del> 22w 6d 190 lb (+25 lb) 22 150 active 112/62 190 lb <del>?</del> 02/08/24 <del>?</del> 27w 0d 198 lb (+33 lb) 27.5 150 active 124/80 198 lb <del>?</del> 02/26/24 <del>?</del> 29w 4d 197 lb (+32 lb) 30 140 active 112/64 197 lb <del>?</del> 03/18/24 <del>?</del> 32w 4d 205 lb (+40 lb) 32 140 active 100/64 205 lb <del>?</del> Notes Visit Date: 03/18/24 Last Updated by: Renee Hill CNM Note author: Renee Hill CNM. 32.4wk. LALO. Taking PNV, Doing well with no concerns. Good appetite, stays well hydrated. Denies any LOF, VB, abd. pain or urinary symptoms. Plans vacation in [facility] soon. Reviewed: PTL s/s-LOF/Ctx's/VB, when to seek emergent care. FM and when to call the office for further eval. RTO 2wks. Visit Date: 02/26/24 Last Updated by: Renee Hill CNM Note author: Renee Hill CNM. 29.4 wk. LALO. Taking PNV, Doing well with no concerns. Good appetite, stays well hydrated. Denies any LOF, VB, abd. pain or urinary symptoms. She reports a mild case of COVID last week. Reviewed: PTL s/s-LOF/Ctx's/VB, when to seek emergent care. discomforts, self help measures. FM and when to call the office for further eval. Encouraged a healthy well balanced diet, regular walking/exercise in . Hydrate well, 10-12 glasses of water daily. RhoGAM today. Plans Tdap at her next visit. RTO 2 wks. Visit Date: 02/08/24 Last Updated by: Renee Hill CNM Note author: Renee Hill CNM. 27wk. LAOL. Taking PNV, Doing well with no concerns. Good appetite, stays well hydrated. Denies any LOF, VB, abd. pain or urinary symptoms. A negative plan 28 week labs next week and RhoGAM to follow. Appointments to be scheduled RTO 2 wks. Visit Date: 01/10/24 Last Updated by: Renee Hill CNM Note author: Renee Hill CNM. 22.6wk. LALO. Taking PNV, Doing well with no concerns. Good appetite, stays well hydrated. Denies any LOF, VB, abd. pain or urinary symptoms. Good FM. Having a girl. Reviewed: FAS PTL s/s-LOF/Ctx's/VB, PEC s/s when to seek emergent care. discomforts, self help measures. FM and when to call the office for further eval. Hydrate well, 10-12 glasses of water daily. Options for classes. 28wk labs at next visit, A neg. Rhogam to follow. RTO 4wks. Visit Date: 12/13/23 Last Updated by: Renee Hill CNM Note author: Renee Hill CNM. 18.6wk. LALO. Taking PNV, Doing well with no concerns. Good appetite, stays well hydrated. Denies any LOF, VB, abd. pain or urinary symptoms. FAS 12/21/23. Reviewed: LOF/Ctx's/VB, when to seek emergent care. Labs. RTO 4wks. Visit Date: 11/15/23 Last Updated by: Renee Hill CNM Note author: Renee Hill CNM. 14.6 wk. LALO. Taking PNV, Doing well with no concerns. Good appetite, stays well hydrated. Denies any LOF, VB, abd. pain or urinary symptoms. Reviewed: NT-normal, Panoramic low risk (does not want to know the gender at this time), horizon results-negative . Reviewed: PTL s/s-LOF/Ctx's/VB, when to seek emergent care at [facility]. Discussed seeing option of seeing midwives at [facility] sooner if desires to establish care. Encouraged a healthy well balanced diet, regular walking/exercise in . Hydrate well, 8-10 glasses of water daily. FAS in 4-5 weeks RTO 4 wks. Visit Date: 10/19/23 Last Updated by: Renee Hill CNM Note author: Renee Hill CNM. 11wk. LALO. Taking PNV, Doing well with no concerns. Good appetite, stays well hydrated. Denies any LOF, VB, abd. pain or urinary symptoms. OBPE today, enlarged right thyroid lobe plan labs follow up with PCP. EPDS=2. Reviewed: Panoramic labs today. Nuchal lucency ordered appt. on 10/28 at [facility]. Rh neg, to call if any VB. Rhogam use. When to call for any vaginal bleeding or abdominal pain or other concerns. Encouraged a healthy well balanced diet, regular walking/exercise in . Hydrate well, 8-10 glasses of water daily. RTO 4wks. Visit Date: 10/03/23 Last Updated by: Libset Fontenot Swati is a pleasant with LMP 08/01/23 (certain) and SUSANNAH 05/07/24, GA today 8w5d. US on 09/21/23 at 7w0d gives SUSANNAH 05/09/24 and GA today of 9w0d. She is taking OTC PNV and reports some occasional nausea, otherwise she feels well. She takes dry crackers for relief. Swati and her are excited about this planned . She is 33 yo and will be 34 yo on or about her SUSANNAH. She was given the Folder. We reviewed danger signs, and first trimester education. Will order NT US and labs today. Pt is scheduled for OB PE 10/19/23 with Kaycee paperwork will be provided for this visit. Swati requests sex to be provided, although she is not completely certain she will want to know the result. Further discussion at the time of results. Swati also reports h/o enlarged kidney without problems at this time. She sees Urologist here at [facility] [place]. Blood type A neg per patient. Pt has no questions at this time. She verbalizes understanding and agrees with plan. Results AMB Urinalysis, Automated UA Leukoctes 3 Efrain/uL Last Edit by MUSTAPHA Prakash on 03/18/24 12:53 UA Nitrite Negative Last Edit by MUSTAPHA Prakash on 03/18/24 12:53 UA Urobilinogen 0 mg/dL Last Edit by MUSTAPHA Prakash on 03/18/24 12:53 UA Protein 0.5 mg/dL Last Edit by BOUBACAR PrakashA on 03/18/24 12:53 UA pH 6.5 Last Edit by Jovanna Quintero A on 03/18/24 12:53 UA Blood 0.5 [place]/uL Last Edit by Jovanna Quintero A on 03/18/24 12:53 UA Specific [place] 1.010 Last Edit by MUSTAPHA Prakash on 03/18/24 12:53 UA Ketone Negative Last Edit by Jovanna Quintero Jai on 03/18/24 12:53 UA Bilirubin 0 mg/dL Last Edit by MUSTAPHA Prakash on 03/18/24 12:53 UA Glucose 0 mg/dL Last Edit by Jovanna Quintero Jai on 03/18/24 12:53 Results Reviewed Results Reviewed: Laboratory Last Values Urine pH (Auto) 6.5 03/18/24 12:52 Specific [place] (Auto) 1.010 03/18/24 12:52 Urine Protein (Auto) 0.5 mg/dL 03/18/24 12:52 Glucose (UA)(Auto) 0 mg/dL 03/18/24 12:52 Urine Ketones (Auto) Negative 03/18/24 12:52 Urine Blood (Auto) 0.5 [place]/uL 03/18/24 12:52 Urine Nitrite (Auto) Negative 03/18/24 12:52 Urine Bilirubin (Auto) 0 mg/dL 03/18/24 12:52 Urine Urobilinogen (Auto) 0 mg/dL 03/18/24 12:52 Leukocyte Esterase (Auto) 3 Efrain/uL 03/18/24 12:52 Coding Level of Care Code [place] Assessment & Plan Assessment & Plan Orders: Orders AMB Urinalysis Automated Today Z34.93 - Encounter for supervision of normal , unspecified, third trimester
[2024-03-18 12:39] VITALS: BP 100/64; BMI 32.1
== END 2024-03-18 13:32 | disposition home or self-care (01) ==
PROVIDERS: PCP Nurse Practitioner; Visit Provider Advanced Practice Midwife
DX: Z34.93 Encounter for supervision of normal pregnancy, unspecified, third trimester (principal)
CPT/HCPCS: 25942

== ENCOUNTER → 2024-03-18 12:31 | Outpatient (BNVA) | payer BC, SELFPAY | PROVIDERS: PCP Nurse Practitioner; Visit Provider Advanced Practice Midwife | DX: O09.513 Supervision of elderly primigravida, third trimester (principal); O99.283 Endocrine, nutritional and metabolic diseases complicating pregnancy, third trimester; E04.9 Nontoxic goiter, unspecified; Z3A.32 32 weeks gestation of pregnancy | CPT/HCPCS: 81003; 99212 ==

== ENCOUNTER 2024-04-02 09:40 | Outpatient (AMB) | payer BC, SELFPAY ==
--- NOTE | 2024-04-02 10:03 | MHC.OFFVISPN ---
Intake Vital Signs 04/02/24 10:14 Height 5 ft 7 in Weight 206 lb BMI 32.3 BP 100/64 Intake Visit Reasons: Rik Allergies Sulfa (Sulfonamide Antibiotics) Allergy (Unknown, Verified 04/02/24 10:14) hives Patient : Yes [facility] Medical History (Updated 02/26/24 @ 12:06 by Renee Hill CNM) Supervision of normal in second trimester Enlarged kidney Asthma Surgical History History of ureteropelvic junction repair Family History Paternal Grandmother History of breast cancer Colon cancer Lung cancer Paternal Grandfather CAD (coronary artery disease) Maternal Grandmother Alzheimer's dementia Mother Hypothyroidism Father No problems noted. 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 old G 1 P0 EDC: 05/09/24 by US Blood type: Aneg Problem List: 1. Rh negative, Rhogam 02/26/24 2. AMA, EDC on birthdate 3. enlarged right thyroid lobe-TSH, ref. to PCP, FH of thyroid disorder-mom EPDS=2 at IOB Testing: Panorama: low risk CBC 1st Tri: 13.7/41.7 28 wk. HCT: 36.6 Glucose- 132 GBS: Vaccinations: Flu: UTD Covid: Vax x4, Covid+ . Tdap: RSV: [id number]-August: Education/Services WIC: not eligible CBE: [facility] info given, tour and classes book. 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 Transportation: own car Labor, and Concerns: Labor support: Plan: natural Feeding Plans: control: Nexplanon OB Visit Log Initial Weight: 165 lb Date <del>?</del> EGA Weight Gest Week Fundal Ht Present FHR move Efface % Edema BP PrePreg We Weight GTT <del>?</del> Glucose LV Protein Blood Type 10/03/23 <del>?</del> 8w 5d 170 lb (+5 lb) 170 lb <del>?</del> 10/19/23 <del>?</del> 11w 0d 170 lb (+5 lb) 11 150 116/64 170 lb <del>?</del> 11/15/23 <del>?</del> 14w 6d 180 lb (+15 lb) 15 150 100/60 180 lb <del>?</del> 12/13/23 <del>?</del> 18w 6d 185 lb (+20 lb) 19 150 104/60 185 lb <del>?</del> 01/10/24 <del>?</del> 22w 6d 190 lb (+25 lb) 22 150 active 112/62 190 lb <del>?</del> 02/08/24 <del>?</del> 27w 0d 198 lb (+33 lb) 27.5 150 active 124/80 198 lb <del>?</del> 02/26/24 <del>?</del> 29w 4d 197 lb (+32 lb) 30 140 active 112/64 197 lb <del>?</del> 03/18/24 <del>?</del> 32w 4d 205 lb (+40 lb) 32 140 active 100/64 205 lb <del>?</del> 04/02/24 <del>?</del> 34w 5d 206 lb (+41 lb) 33 140 active 100/64 206 lb <del>?</del> Notes Visit Date: 04/02/24 Last Updated by: Renee Hill CNM Note author: Renee Hill CNM. 34.5wk. RIK. Taking PNV, Doing well with no concerns. Good appetite, stays well hydrated. Denies any LOF, VB, abd. pain or urinary symptoms. Reviewed: PTL s/s-LOF/Ctx's/VB, when to seek emergent care. discomforts, self help measures. FKC and when to call the office for further eval. Encouraged a healthy well balanced diet, regular walking/exercise in . Hydrate well, 10-12 glasses of water daily. Tdap today. RTO 2wks. Visit Date: 03/18/24 Last Updated by: Renee Hill CNM Note author: Renee Hill CNM. 32.4wk. RIK. Taking PNV, Doing well with no concerns. Good appetite, stays well hydrated. Denies any LOF, VB, abd. pain or urinary symptoms. Plans vacation in [facility] soon. Reviewed: PTL s/s-LOF/Ctx's/VB, when to seek emergent care. FM and when to call the office for further eval. RTO 2wks. Visit Date: 02/26/24 Last Updated by: Renee Hill CNM Note author: Renee Hill CNM. 29.4 wk. RIK. Taking PNV, Doing well with no concerns. Good appetite, stays well hydrated. Denies any LOF, VB, abd. pain or urinary symptoms. She reports a mild case of COVID last week. Reviewed: PTL s/s-LOF/Ctx's/VB, when to seek emergent care. discomforts, self help measures. FM and when to call the office for further eval. Encouraged a healthy well balanced diet, regular walking/exercise in . Hydrate well, 10-12 glasses of water daily. RhoGAM today. Plans Tdap at her next visit. RTO 2 wks. Visit Date: 02/08/24 Last Updated by: Renee Hlil CNM Note author: Renee Hill CNM. 27wk. RIK. Taking PNV, Doing well with no concerns. Good appetite, stays well hydrated. Denies any LOF, VB, abd. pain or urinary symptoms. A negative plan 28 week labs next week and RhoGAM to follow. Appointments to be scheduled RTO 2 wks. Visit Date: 01/10/24 Last Updated by: Renee Hill CNM Note author: Renee Hill CNM. 22.6wk. RIK. Taking PNV, Doing well with no concerns. Good appetite, stays well hydrated. Denies any LOF, VB, abd. pain or urinary symptoms. Good FM. Having a girl. Reviewed: FAS PTL s/s-LOF/Ctx's/VB, PEC s/s when to seek emergent care. discomforts, self help measures. FM and when to call the office for further eval. Hydrate well, 10-12 glasses of water daily. Options for classes. 28wk labs at next visit, A neg. Rhogam to follow. RTO 4wks. Visit Date: 12/13/23 Last Updated by: Renee Hill CNM Note author: Renee Hill CNM. 18.6wk. RIK. Taking PNV, Doing well with no concerns. Good appetite, stays well hydrated. Denies any LOF, VB, abd. pain or urinary symptoms. FAS 12/21/23. Reviewed: LOF/Ctx's/VB, when to seek emergent care. Labs. RTO 4wks. Visit Date: 11/15/23 Last Updated by: Renee Hill CNM Note author: Renee Hill CNM. 14.6 wk. RIK. Taking PNV, Doing well with no concerns. Good appetite, stays well hydrated. Denies any LOF, VB, abd. pain or urinary symptoms. Reviewed: NT-normal, Panoramic low risk (does not want to know the gender at this time), horizon results-negative . Reviewed: PTL s/s-LOF/Ctx's/VB, when to seek emergent care at [facility]. Discussed seeing option of seeing midwives at [facility] sooner if desires to establish care. Encouraged a healthy well balanced diet, regular walking/exercise in . Hydrate well, 8-10 glasses of water daily. FAS in 4-5 weeks RTO 4 wks. Visit Date: 10/19/23 Last Updated by: Renee Hill CNM Note author: Renee Hill CNM. 11wk. RIK. Taking PNV, Doing well with no concerns. Good appetite, stays well hydrated. Denies any LOF, VB, abd. pain or urinary symptoms. OBPE today, enlarged right thyroid lobe plan labs follow up with PCP. EPDS=2. Reviewed: Panoramic labs today. Nuchal lucency ordered appt. on 10/28 at [facility]. Rh neg, to call if any VB. Rhogam use. When to call for any vaginal bleeding or abdominal pain or other concerns. Encouraged a healthy well balanced diet, regular walking/exercise in . Hydrate well, 8-10 glasses of water daily. RTO 4wks. Visit Date: 10/03/23 Last Updated by: Lisbet Storey Po [place] is a pleasant with LMP 08/01/23 (certain) and SUSANNAH 05/07/24, GA today 8w5d. US on 09/21/23 at 7w0d gives SUSANNAH 05/09/24 and GA today of 9w0d. She is taking OTC PNV and reports some occasional nausea, otherwise she feels well. She takes dry crackers for relief. Swati and her are excited about this planned . She is 33 yo and will be 34 yo on or about her SUSANNAH. She was given the Folder. We reviewed danger signs, and first trimester education. Will order NT US and labs today. Pt is scheduled for OB PE 10/19/23 with Kaycee paperwork will be provided for this visit. Swati requests sex to be provided, although she is not completely certain she will want to know the result. Further discussion at the time of results. Swati also reports h/o enlarged kidney without problems at this time. She sees Urologist here at [facility]. Blood type A neg per patient. Pt has no questions at this time. She verbalizes understanding and agrees with plan. Results AMB Urinalysis, Automated UA Leukoctes 2 Efrain/uL Last Edit by MUSTAPHA Prakash on 04/02/24 10:16 UA Nitrite Negative Last Edit by Jovanna Quintero Jai on 04/02/24 10:16 UA Urobilinogen 0 mg/dL Last Edit by Jovanna Quintero [facility] on 04/02/24 10:16 UA Protein 0.5 mg/dL Last Edit by MUSTAPHA Prakash on 04/02/24 10:16 UA pH 7.0 Last Edit by Jovanna Quintero [facility] on 04/02/24 10:16 UA Blood 0 Weston/uL Last Edit by Jovanna Quintero Jai on 04/02/24 10:16 UA Specific [place] 1.010 Last Edit by Jovanna Quintero [facility] on 04/02/24 10:16 UA Ketone Negative Last Edit by Jovanna Quintero Jai on 04/02/24 10:16 UA Bilirubin 0 mg/dL Last Edit by MUSTAPHA Prakash on 04/02/24 10:16 UA Glucose 0 mg/dL Last Edit by Jovanna Quintero [facility] on 04/02/24 10:16 Immunizations Boostrix Tdap 2.5 Lf unit-8 mcg-5 Lf/0.5 mL intramuscular syringe Performing Provider: Renee Hill CNM Performing Location: [facility] Administered by: Lisbet Fontenot on 04/02/24 10:55 Dose Route Admin Location Dispensed Lot Number Expiration Date [facility] Urgent Care Physician Assistant 0.5 mL IM Left Deltoid 0.5 mL [id number] 05/04/26 [id number] iMOSPHERE VIS Given Date VIS Provided VIS Publication Date 04/02/24 Single Vaccine 21 Eligibility Eligibility Date Funding Source Not [facility] Eligible 04/02/24 Private Results Reviewed Results Reviewed: Laboratory Last Values Urine pH (Auto) 7.0 04/02/24 10:15 Specific [place] (Auto) 1.010 04/02/24 10:15 Urine Protein (Auto) 0.5 mg/dL 04/02/24 10:15 Glucose (UA)(Auto) 0 mg/dL 04/02/24 10:15 Urine Ketones (Auto) Negative 04/02/24 10:15 Urine Blood (Auto) 0 Weston/uL 04/02/24 10:15 Urine Nitrite (Auto) Negative 04/02/24 10:15 Urine Bilirubin (Auto) 0 mg/dL 04/02/24 10:15 Urine Urobilinogen (Auto) 0 mg/dL 04/02/24 10:15 Leukocyte Esterase (Auto) 2 Efrain/uL 04/02/24 10:15 Coding Level of Care Code [place] Assessment & Plan Assessment & Plan Orders: Orders AMB Urinalysis Automated Today Z34.93 - Encounter for supervision of normal , unspecified, third trimester TDaP Immunization Today Z34.93 - Encounter for supervision of normal , unspecified, third trimester
[2024-04-02 10:14] VITALS: BP 100/64; BMI 32.3
== END 2024-04-02 10:46 | disposition home or self-care (01) ==
LOC: HO.HWS 09:40
PROVIDERS: PCP Nurse Practitioner; Visit Provider Advanced Practice Midwife
DX: Z34.93 Encounter for supervision of normal pregnancy, unspecified, third trimester (principal)
CPT/HCPCS: 25942

== ENCOUNTER → 2024-04-02 09:40 | Outpatient (BNVA) | payer BC, SELFPAY | PROVIDERS: PCP Nurse Practitioner; Visit Provider Advanced Practice Midwife | DX: O09.513 Supervision of elderly primigravida, third trimester (principal); Z3A.34 34 weeks gestation of pregnancy | CPT/HCPCS: 81003; 90471; 90715; 99212 ==

== ENCOUNTER 2024-04-15 09:38 | Outpatient (AMB) | payer BC, SELFPAY ==
--- NOTE | 2024-04-15 09:40 | A.OFFVISPN_ITS ---
Intake Vital Signs 04/15/24 09:41 Height 5 ft 7 in Weight 211 lb BMI 33.0 BP 110/60 Intake Visit Reasons: CHERYL Cloth Bolt Bander Required: No Information Interpreted: clinical only Lone Lead Lineman: Lone Lead Lineman Present Allergies Sulfa (Sulfonamide Antibiotics) Allergy (Unknown, Verified 04/15/24 09:47) hives Medication List - Last Reconciled 04/15/24 by Tabitha Elias CNM albuterol sulfate 90 mcg/actuation (Proair Digihaler) 2 inhalations inhalation Q6H PRN PNV #[id number] acid-dha 35 mg iron-5 mg iron-1 mg 1 cap PO DAILY PFSH Medical History Supervision of normal in second trimester Enlarged kidney Asthma Surgical History History of ureteropelvic junction repair Family History Paternal Grandmother History of breast cancer Colon cancer Lung cancer Paternal Grandfather CAD (coronary artery disease) Maternal Grandmother Alzheimer's dementia Mother Hypothyroidism Father No problems noted. 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 old G 1 P0 EDC: 9/27/24 by US Blood type: Aneg Problem List: 1. Rh negative, Rhogam 02/26/24 2. AMA, EDC on birthdate 3. enlarged right thyroid lobe-TSH, ref. to PCP, FH of thyroid disorder-mom EPDS=2 at IOB Testing: Panorama: low risk CBC 1st Tri: 13.7/41.7 28 wk. HCT: 36.6 Glucose- 132 GBS: Vaccinations: Flu: UTD Covid: Vax x4, Covid+ . Tdap: RSV: [id number]-January: Education/Services WIC: not eligible CBE: [facility] info given, tour and classes book. 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 car Labor, and Concerns: Labor support: Plan: natural Infant Feeding Plans: control: Nexplanon OB Visit Log Initial Weight: 165 lb Date -?-?-?-?-?-?-?-?-?-?-?-?- EGA Weight Gest Week Fundal Ht Present FHR move Efface % Edema BP PrePreg We Weight GTT -?-?-?-?-?-?-?-?-?-?-?-?- Glucose LV Protein Blood Type 10/03/23 -?-?--?-?-?-?-?-?-?-?-?-?- 8w 5d 170 lb (+5 lb) 170 lb -?-?-?-?-?-?-?-?-?-?-?-?- 10/19/23 -?-?-?-?-?-?-?-?-?-?-?-?- 11w 0d 170 lb (+5 lb) 11 150 116/64 170 lb -?-?-?-?-?-?-?-?-?-?-?-?- 11/15/23 -?-?-?-?-?-?-?-?-?--?-?-?- 14w 6d 180 lb (+15 lb) 15 150 100/60 180 lb -?-?-?-?-?-?-?-?-?-?-?-?- 12/13/23 -?-?-?-?--?-?-?-?-?-?-?-?- 18w 6d 185 lb (+20 lb) 19 150 104/60 185 lb -?-?-?-?-?-?-?-?-?-?-?-?- 01/10/24 -?-?-?-?-?-?-?-?-?-?-?-?- 22w 6d 190 lb (+25 lb) 22 150 active 112/62 190 lb -?-?-?-?-?-?-?-?-?-?-?-?- 02/08/24 -?-?-?-?-?-?-?-?-?-?-?-?- 27w 0d 198 lb (+33 lb) 27.5 150 active 124/80 198 lb -?-?-?-?-?-?-?-?-?-?-?-?- 02/26/24 -?-?-?-?-?-?-?-?-?-?-?-?- 29w 4d 197 lb (+32 lb) 30 140 active 112/64 197 lb -?-?-?-?-?-?-?-?-?-?-?-?- 03/18/24 -?-?-?-?-?-?-?-?-?-?-?-?- 32w 4d 205 lb (+40 lb) 32 140 active 100/64 205 lb -?-?-?-?-?-?-?-?-?-?-?-?- 04/02/24 -?-?-?-?-?-?-?-?-?-?-?-?- 34w 5d 206 lb (+41 lb) 33 140 active 100/64 206 lb -?-?--?-?-?-?-?-?-?-?-?-?- 04/15/24 -?-?-?-?-?-?-?-?-?-?-?-?- 36w 4d 211 lb (+46 lb) 35 150 active 110/60 211 lb -?-?-?-?-?-?-?-?-?-?-?-?- Notes Visit Date: 04/15/24 Last Updated by: Tabitha Elias CNM Seen today at 36 weeks and 4 days at our [facility] office. She says she is doing well baby is active she is not having any issues with any discomforts or swelling or any untoward symptoms. She is aware of when to seek care in labor with contractions or rupture of membranes or decreased movement. She is feeling prepared and ready she does not have any questions and she has viewed Education films. She lives in [place] but works in [place] so so she found it convenient to stay here for care. We will do cultures today. EFW by Law's 5 and half to 6 lb vertex ROT, testing done for gonorrhea chlamydia and group B strep. Patient declined vaginal exam normal appearing discharge. Discussed labor readiness and potentially switching to breast and bottle in future and plans for Nexplanon for control at 6 weeks patient does not have any other questions she will have weekly visits from here on out. Visit Date: 04/02/24 Last Updated by: Renee Hill CNM Note author: Renee Hill CNM. 34.5wk. CHERYL. Taking PNV, Doing well with no concerns. Good appetite, stays well hydrated. Denies any LOF, VB, abd. pain or urinary symptoms. Reviewed: PTL s/s-LOF/Ctx's/VB, when to seek emergent care. discomforts, self help measures. FKC and when to call the office for further eval. Encouraged a healthy well balanced diet, regular walking/exercise in . Hydrate well, 10-12 glasses of water daily. Tdap today. RTO 2wks. Visit Date: 03/18/24 Last Updated by: Renee Hill CNM Note author: Renee Hill CNM. 32.4wk. CHERYL. Taking PNV, Doing well with no concerns. Good appetite, stays well hydrated. Denies any LOF, VB, abd. pain or urinary symptoms. Plans vacati on in [facility] soon. Reviewed: PTL s/s-LOF/Ctx's/VB, when to seek emergent care. FM and when to call the office for further eval. RTO 2wks. Visit Date: 02/26/24 Last Updated by: Renee Hill CNM Note author: Renee Hill CNM. 29.4 wk. CHERYL. Taking PNV, Doing well with no concerns. Good appetite, stays well hydrated. Denies any LOF, VB, abd. pain or urinary symptoms. She reports a mild case of COVID last week. Reviewed: PTL s/s-LOF/Ctx's/VB, when to seek emergent care. discomforts, self help measures. FM and when to call the office for further eval. Encouraged a healthy well balanced diet, regular walking/exercise in . Hydrate well, 10-12 glasses of water daily. RhoGAM today. Plans Tdap at her next visit. RTO 2 wks. Visit Date: 02/08/24 Last Updated by: Renee Hill CNM Note author: Renee Hill CNM. 27wk. CHERYL. Taking PNV, Doing well with no concerns. Good appetite, stays well hydrated. Denies any LOF, VB, abd. pain or urinary symptoms. A negative plan 28 week labs next week and RhoGAM to follow. Appointments to be scheduled RTO 2 wks. Visit Date: 01/10/24 Last Updated by: Renee Hill CNM Note author: Renee Hill CNM. 22.6wk. CHERYL. Taking PNV, Doing well with no concerns. Good appetite, stays well hydrated. Denies any LOF, VB, abd. pain or urinary symptoms. Good FM. Having a girl. Reviewed: FAS PTL s/s-LOF/Ctx's/VB, PEC s/s when to seek emergent care. discomforts, self help measures. FM and when to call the office for further eval. Hydrate well, 10-12 glasses of water daily. Options for classes. 28wk labs at next visit, A neg. Rhogam to follow. RTO 4wks. Visit Date: 12/13/23 Last Updated by: Renee Hill CNM Note author: Renee Hill CNM. 18.6wk. CHERYL. Taking PNV, Doing well with no concerns. Good appetite, stays well hydrated. Denies any LOF, VB, abd. pain or urinary symptoms. FAS 12/21/23. Reviewed: LOF/Ctx's/VB, when to seek emergent care. Labs. RTO 4wks. Visit Date: 11/15/23 Last Updated by: Renee Hill CNM Note author: Renee Hill CNM. 14.6 wk. CHERYL. Taking PNV, Doing well with no concerns. Good appetite, stays well hydrated. Denies any LOF, VB, abd. pain or urinary symptoms. Reviewed: NT-normal, Panoramic low risk (does not want to know the gender at this time), horizon results-negative . Reviewed: PTL s/s-LOF/Ctx's/VB, when to [facility]. Discussed seeing option of seeing midwives at [facility] sooner if desires to establish care. Encouraged a healthy well balanced diet, regular walking/exercise in . Hydrate well, 8-10 glasses of water daily. FAS in 4-5 weeks RTO 4 wks. Visit Date: 10/19/23 Last Updated by: Renee Hill CNM Note author: Renee Hill CNM. 11wk. CHERYL. Taking PNV, Doing well with no concerns. Good appetite, stays well hydrated. Denies any LOF, VB, abd. pain or urinary symptoms. OBPE today, enlarged right thyroid lobe plan labs follow up with PCP. EPDS=2. Reviewed: Panoramic labs today. Nuchal lucency ordered appt. on 10/28 at [facility]. Rh neg, to call if any VB. Rhogam use. When to call for any vaginal bleeding or abdominal pain or other concerns. Encouraged a healthy well balanced diet, regular walking/exercise in . Hydrate well, 8-10 glasses of water daily. RTO 4wks. Visit Date: 10/03/23 Last Updated by: Lisbet Storey Po Long[place] is a pleasant with LMP 08/01/23 (certain) and SUSANNAH 05/07/24, GA today 8w5d. US on 09/21/23 at 7w0d gives SUSANNAH 05/09/24 and GA today of 9w0d. She is taking OTC PNV and reports some occasional nausea, otherwise she feels well. She takes dry crackers for relief. Swati and her are excited about this planned . She is 33 yo and will be 34 yo on or about her SUSANNAH. She was given the Folder. We reviewed danger signs, and first trimester education. Will order NT US and labs today. Pt is scheduled for OB PE 10/19/23 with Kaycee paperwork will be provided for this visit. Swati requests sex to be provided, although she is not completely certain she will want to know the result. Further discussion at the time of results. Swati also reports h/o enlarged kidney without problems at this time. She sees [place]rologist [place] [facility] Blood type A neg per patient. Pt has no questions at this time. She verbalizes understanding and agrees with plan. Initial Infection History & Risk Profile History of STDs: No HIV risk evaluation: low risk Hepatitis B risk evaluation: low risk Patient or partner has history of Genital Herpes: No Varicella/chicken pox status: previous disease Genetic Screening & Manager Transmission Genetic Screening/Teratology Counseling - Includes patient, baby's father, or anyone in either family with: 1. Patient's age 35 years or older as of estimated date of delivery: No 2. Thalassemia (Bermudian, Kyrgyz, Mediterranean, or Background); MCV less than 80: No 3. Neural Tube Defect (Meningomyelocele, Spina Bifida, or Anencephaly): No 4. Congenital Heart Defect: No 5. Down Syndrome: No 6. Shahriar-Sachs (Ashkenazi Sabianism, Cajun, [place]): Yes 7. Fredis Disease (Ashkenazi Sabianism): No 8. Familial Dysautonomia (Ashkenazi Sabianism): No 9. Sickle Cell Disease or Trait (): No 10. Hemophilia or other blood disorders: No 11. Muscular Dystrophy: No 12. Cystic Fibrosis: No 13. [place]'s Chorea: No 14. Intellectual disability/Autism: Yes 15. Other inherited genetic or chromosomal disorder: No 16. Maternal Metabolic Disorder (EG,TYPE 1 Diabetes, PKU): No 17. Patient or baby's father had a child with defects not listed above: No 18. Recurrent loss or a stillbirth: No 19. Medications (including supplements, vitamins, herbs or otc drugs)/illicit/recreational drugs/alcohol since last menstrual period: No 20. Any other: No Comments/Counseling: [place] background Infection History 1. Live with someone with TB or exposed to TB: No 2. Rash or viral illness since last menstrual period: No 3. Hepatitis B,C: No Other (see comments) Source: [employer] [place] [employer] Coding Level of Care Code Betty Diagnoses Supervision of normal first Z34.00 Assessment & Plan Assessment & Plan (1) Supervision of normal first : Code(s): Z34.00 - Encounter for supervision of normal first , unspecified trimester Category: Medical
[2024-04-15 09:41] VITALS: BP 110/60; BMI 33.0
== END 2024-04-15 11:15 | disposition home or self-care (01) ==
PROVIDERS: PCP Nurse Practitioner; Visit Provider Advanced Practice Midwife
DX: Z34.00 Encounter for supervision of normal first pregnancy, unspecified trimester (principal)
CPT/HCPCS: 25942

== ENCOUNTER 2024-04-15 09:38 | Outpatient (REF) | payer BC, SELFPAY ==
[2024-04-16 06:14] LABS: CT PCR NOT DETECTED (Not Detect.); NG PCR NOT DETECTED (Not Detect.)
[2024-04-16 10:42] LABS: Bacterial Vaginosis PCR NEGATIVE (Negative); Candida Group PCR NOT DETECTED (Not Detect); Candida glab krusei PCR NOT DETECTED (Not Detect); Trichomonas vaginalis PCR NOT DETECTED (Not Detect)
== END 2024-04-15 09:39 | disposition home or self-care (01) ==
LOC: HO.LAB 09:38
PROVIDERS: PCP Nurse Practitioner; Visit Provider Advanced Practice Midwife
DX: N89.8 Other specified noninflammatory disorders of vagina (principal); Z34.00 Encounter for supervision of normal first pregnancy, unspecified trimester
CPT/HCPCS: 0352U; 87081; 87491; 87591; 99212

== ENCOUNTER 2024-04-23 10:15 | Outpatient (AMB) | payer BC, SELFPAY ==
--- NOTE | 2024-04-23 10:17 | A.OFFVISPN_ITS ---
Intake Vital Signs 04/23/24 10:18 Height 5 ft 7 in Weight 214 lb BMI 33.5 BP 114/64 Intake Visit Reasons: CHERYL Allergies Sulfa (Sulfonamide Antibiotics) Allergy (Unknown, Verified 04/23/24 10:17) hives Patient : Yes PFSH Medical History Supervision of normal in second trimester Enlarged kidney Asthma Surgical History History of ureteropelvic junction repair Family History Paternal Grandmother History of breast cancer Colon cancer Lung cancer Paternal Grandfather CAD (coronary artery disease) Maternal Grandmother Alzheimer's dementia Mother Hypothyroidism Father No problems noted. 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 old G 1 P0 EDC: 05/09/24 by US Blood type: Aneg Problem List: 1. Rh negative, Rhogam 02/26/24 2. AMA, EDC on birthdate 3. enlarged right thyroid lobe-TSH, ref. to PCP, FH of thyroid disorder-mom EPDS=2 at IOB Testing: Panorama: low risk CBC 1st Tri: 13.7/41.7 28 wk. HCT: 36.6 Glucose- 132 GBS: negative. Vaccinations: Flu: UTD Covid: Vax x4, Covid+ . Tdap: RSV: [id number]: Education/Services WIC: not eligible CBE: [facility] info given, tour and classes book. 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-?-?-?-?-?-?-?-?- 12/13/23 -?-?-?-?-?-?-?-?-?-?-?-?- 18w 6d 185 lb (+20 lb) 19 150 104/60 185 lb -?-?-?-?-?-?-?-?-?-?-?-?- 01/10/24 -?-?-?-?-?-?-?-?-?-?-?-?- 22w 6d 190 lb (+25 lb) 22 150 active 112/62 190 lb -?-?-?-?-?-?-?-?-?-?-?-?- 02/08/24 -?-?-?-?-?-?-?-?-?-?-?-?- 27w 0d 198 lb (+33 lb) 27.5 150 active 124/80 198 lb -?-?-?-?-?-?-?-?-?-?-?-?- 02/26/24 -?-?-?-?-?-?-?-?-?-?-?-?- 29w 4d 197 lb (+32 lb) 30 140 active 112/64 197 lb -?-?-?-?-?-?-?-?-?-?-?-?- 03/18/24 -?-?-?-?-?-?-?-?-?-?-?-?- 32w 4d 205 lb (+40 lb) 32 140 active 100/64 205 lb -?-?-?-?-?-?-?-?-?-?-?-?- 04/02/24 -?-?-?-?-?-?-?-?-?-?-?-?- 34w 5d 206 lb (+41 lb) 33 140 active 100/64 206 lb -?-?-?-?-?-?-?-?-?-?-?-?- 04/15/24 -?-?-?-?-?-?-?-?-?-?-?-?- 36w 4d 211 lb (+46 lb) 35 150 active 110/60 211 lb -?-?-?-?-?-?-?-?-?-?-?-?- 04/23/24 -?-?-?-?-?-?-?-?-?-?-?-?- 37w 5d 214 lb (+49 lb) 36 140 active 114/64 214 lb -?-?-?-?-?-?-?-?-?-?-?-?- Notes Visit Date: 04/23/24 Last Updated by: Renee Hill CNM Note author: Renee Hill CNM. 37.5wk. CHERYL. Taking PNV, Doing well with no concerns. Good appetite, stays well hydrated. Denies any LOF, VB, abd. pain or urinary symptoms. She reports good movements. Prepped at home. Reviewed: GBS is negative, copies to the hospital and copy for patient to have on hand to bring to the hospital. Labor s/s-LOF/Ctx's/VB, when to seek emergent care. FKC and when to call the office for further eval. Encouraged a healthy well balanced diet, regular walking/exercise in p regnancy. Hydrate well, 10-12 glasses of water daily. ACOG literature reviewed inconclusive for AP testing with her criteria of 35-AMA at delivery date, plan BPP and NSTs at [facility], continue kick counts. Staff to schedule appointments. RTO 1 wks. Visit Date: 04/15/24 Last Updated by: Tabitha Elias CNM Seen today at 36 weeks and 4 days at our [facility] office. She says she is doing well baby is active she is not having any issues with any discomforts or swelling or any untoward symptoms. She is aware of when to seek care in labor with contractions or rupture of membranes or decreased movement. She is feeling prepared and ready she does not have any questions and she has viewed Education films. She lives in [place] but works in [place] so so she found it convenient to stay here for care. We will do cultures today. EFW by Law's 5 and half to 6 lb vertex ROT, testing done for gonorrhea chlamydia and group B strep. Patient declined vaginal exam normal appearing discharge. Discussed labor readiness and potentially switching to breast and bottle in future and plans for Nexplanon for control at 6 weeks patient does not have any other questions she will have weekly visits from here on out. Visit Date: 04/02/24 Last Updated by: Renee Hill CNM Note author: Renee Hlil CNM. 34.5wk. CHERYL. Taking PNV, Doing well with no concerns. Good appetite, stays well hydrated. Denies any LOF, VB, abd. pain or urinary symptoms. Reviewed: PTL s/s-LOF/Ctx's/VB, when to seek emergent care. discomforts, self help measures. FKC and when to call the office for further eval. Encouraged a healthy well balanced diet, regular walking/exercise in . Hydrate well, 10-12 glasses of water daily. Tdap today. RTO 2wks. Visit Date: 03/18/24 Last Updated by: Renee Hill CNM Note author: Renee Hill CNM. 32.4wk. CHERYL. Taking PNV, Doing well with no concerns. Good appetite, stays well hydrated. Denies any LOF, VB, abd. pain or urinary symptoms. Plans vacation in [facility] soon. Reviewed: PTL s/s-LOF/Ctx's/VB, when to seek emergent care. FM and when to call the office for further eval. RTO 2wks. Visit Date: 02/26/24 Last Updated by: Renee Hill CNM Note author: Renee Hill CNM. 29.4 wk. CHERYL. Taking PNV, Doing well with no concerns. Good appetite, stays well hydrated. Denies any LOF, VB, abd. pain or urinary symptoms. She reports a mild case of COVID last week. Reviewed: PTL s/s-LOF/Ctx's/VB, when to seek emergent care. discomforts, self help measures. FM and when to call the office for further eval. Encouraged a healthy well balanced diet, regular walking/exercise in . Hydrate well, 10-12 glasses of water daily. RhoGAM today. Plans Tdap at her next visit. RTO 2 wks. Visit Date: 02/08/24 Last Updated by: Renee Hill CNM Note author: Renee Hill CNM. 27wk. CHERYL. Taking PNV, Doing well with no concerns. Good appetite, stays well hydrated. Denies any LOF, VB, abd. pain or urinary symptoms. A negative plan 28 week labs next week and RhoGAM to follow. Appointments to be scheduled RTO 2 wks. Visit Date: 01/10/24 Last Updated by: Renee Hill CNM Note author: Renee Hill CNM. 22.6wk. CHERYL. Taking PNV, Doing well with no concerns. Good appetite, stays well hydrated. Denies any LOF, VB, abd. pain or urinary symptoms. Good FM. Having a girl. Reviewed: FAS PTL s/s-LOF/Ctx's/VB, PEC s/s when to seek emergent care. discomforts, self help measures. FM and when to call the office for further eval. Hydrate well, 10-12 glasses of water daily. Options for classes. 28wk labs at next visit, A neg. Rhogam to follow. RTO 4wks. Visit Date: 12/13/23 Last Updated by: Renee Hill CNM Note author: Renee Hill CNM. 18.6wk. CHERYL. Taking PNV, Doing well with no concerns. Good appetite, stays well hydrated. Denies any LOF, VB, abd. pain or urinary symptoms. FAS 12/21/23. Reviewed: LOF/Ctx's/VB, when to seek emergent care. Labs. RTO 4wks. Visit Date: 11/15/23 Last Updated by: Renee Hill CNM Note author: Renee Hill CNM. 14.6 wk. CHERYL. Taking PNV, Doing well with no concerns. Good appetite, stays well hydrated. Denies any LOF, VB, abd. pain or urinary symptoms. Reviewed: NT-normal, Panoramic low risk (does not want to know the gender at this time), horizon results-negative . Reviewed: PTL s/s-LOF/Ctx's/VB, when to seek emergent care at [facility]. Discussed seeing option of seeing midwives at [facility] sooner if desires to establish care. Encouraged a healthy well balanced diet, regular walking/exercise in . Hydrate well, 8-10 glasses of water daily. FAS in 4-5 weeks RTO 4 wks. Visit Date: 10/19/23 Last Updated by: Renee Hill CNM Note author: Renee Hill CNM. 11wk. CHERYL. Taking PNV, Doing well with no concerns. Good appetite, stays well hydrated. Denies any LOF, VB, abd. pain or urinary symptoms. OBPE today, enlarged right thyroid lobe plan labs follow up with PCP. EPDS=2. Reviewed: Panoramic labs today. Nuchal lucency ordered appt. on 10/28 at [facility]. Rh neg, to call if any VB. Rhogam use. When to call for any vaginal bleeding or abdominal pain or other concerns. Encouraged a healthy well balanced diet, regular walking/exercise in . Hydrate well, 8-10 glasses of water daily. RTO 4wks. Visit Date: 10/03/23 Last Updated by: Lisbet Fontenot Swati is a pleasant with LMP 08/01/23 (certain) and SUSANNAH 05/07/24, GA today 8w5d. US on 09/21/23 at 7w0d gives SUSANNAH 05/09/24 and GA today of 9w0d. She is taking OTC PNV and reports some occasional nausea, otherwise she feels well. She takes dry crackers for relief. Swati and her are excited about this planned . She is 33 yo and will be 34 yo on or about her SUSANNAH. She was given the Folder. We reviewed danger signs, and first trimester education. Will order NT US and labs today. Pt is scheduled for OB PE 10/19/23 with Kaycee paperwork will be provided for this visit. Swati requests sex to be provided, although she is not completely certain she will want to know the result. Further discussion at the time of results. Swati also reports h/o enlarged kidney without problems at this time. [place] [facility] Blood type A neg per patient. Pt has no questions at this time. She verbalizes understanding and agrees with plan. Results AMB Urinalysis, Automated UA Leukoctes 2 Efrain/uL Last Edit by MUSTAPHA Prakash on 04/23/24 10:26 UA Nitrite Negative Last Edit by MUSTAPHA Prakash on 04/23/24 10:26 UA Urobilinogen 0 mg/dL Last Edit by MUSTAPHA Prakash on 04/23/24 10:2 6 UA Protein 0.5 mg/dL Last Edit by MUSTAPHA Prakash on 04/23/24 10:26 UA pH 6.5 Last Edit by MUSTAPHA Prakash on 04/23/24 10:26 UA Blood 0 [place]/uL Last Edit by Jovanna Quintero A on 04/23/24 10:26 UA Specific [place] 1.010 Last Edit by BOUBACAR PrakashA on 04/23/24 10:26 UA Ketone Negative Last Edit by Jovanna Quintero Jai on 04/23/24 10:26 UA Bilirubin 0 mg/dL Last Edit by Jovanna Quintero A on 04/23/24 10:26 UA Glucose 0 mg/dL Last Edit by Jovanna Quintero Jai on 04/23/24 10:26 Results Reviewed Results Reviewed: Laboratory Last Values Urine pH (Auto) 6.5 04/23/24 10:25 Specific [place] (Auto) 1.010 04/23/24 10:25 Urine Protein (Auto) 0.5 mg/dL 04/23/24 10:25 Glucose (UA)(Auto) 0 mg/dL 04/23/24 10:25 Urine Ketones (Auto) Negative 04/23/24 10:25 Urine Blood (Auto) 0 [place]/uL 04/23/24 10:25 Urine Nitrite (Auto) Negative 04/23/24 10:25 Urine Bilirubin (Auto) 0 mg/dL 04/23/24 10:25 Urine Urobilinogen (Auto) 0 mg/dL 04/23/24 10:25 Leukocyte Esterase (Auto) 2 Efrain/uL 04/23/24 10:25 Coding Level of Care Code [place] Assessment & Plan Assessment & Plan Orders: Orders AMB Urinalysis Automated Today Z34.00 - Encounter for supervision of normal first , unspecified trimester
[2024-04-23 10:18] VITALS: BP 114/64; BMI 33.5
== END 2024-04-23 10:44 | disposition home or self-care (01) ==
LOC: HO.HWS 10:15
PROVIDERS: PCP Nurse Practitioner; Visit Provider Advanced Practice Midwife
DX: Z34.00 Encounter for supervision of normal first pregnancy, unspecified trimester (principal)
CPT/HCPCS: 25942

== ENCOUNTER → 2024-04-23 10:15 | Outpatient (BNVA) | payer BC, SELFPAY | PROVIDERS: PCP Nurse Practitioner; Visit Provider Advanced Practice Midwife | DX: O09.513 Supervision of elderly primigravida, third trimester (principal); Z3A.37 37 weeks gestation of pregnancy | CPT/HCPCS: 81003; 99212 ==

== ENCOUNTER 2024-04-29 09:19 | Outpatient (AMB) | payer BC, SELFPAY ==
--- NOTE | 2024-04-29 09:20 | A.OFFVISPN_ITS ---
Intake Vital Signs 04/29/24 09:21 Height 5 ft 7 in Weight 215 lb BMI 33.7 BP 90/64 Intake Visit Reasons: CHERYL Allergies Sulfa (Sulfonamide Antibiotics) Allergy (Unknown, Verified 04/29/24 09:21) hives Patient : Yes PFSH Medical History Supervision of normal in second trimester Enlarged kidney Asthma Surgical History History of ureteropelvic junction repair Family History Paternal Grandmother History of breast cancer Colon cancer Lung cancer Paternal Grandfather CAD (coronary artery disease) Maternal Grandmother Alzheimer's dementia Mother Hypothyroidism Father No problems noted. 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 old G 1 P0 EDC: 05/09/24 by US Blood type: Aneg Problem List: 1. Rh negative, Rhogam 02/26/24 2. AMA, EDC on birthdate 3. enlarged right thyroid lobe-TSH, ref. to PCP, FH of thyroid disorder-mom EPDS=2 at IOB Testing: Panorama: low risk CBC 1st Tri: 13.7/41.7 28 wk. HCT: 36.6 Glucose- 132 GBS: negative. Vaccinations: Flu: UTD Covid: Vax x4, Covid+ . Tdap: RSV: [id number]: Education/Services WIC: not eligible CBE: [facility] info given, tour and classes book. 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 car Labor, and Concerns: Labor support: Plan: natural Infant Feeding Plans: control: Nexplanon OB Visit Log Initial Weight: 165 lb Date -?-?-?-?-?-?-?-?-?-?-?-?- EGA Weight Gest Week Fundal Ht Present FHR move Efface % Edema BP PrePreg We Weight GTT -?-?-?-?-?-?-?-?-?-?-?-?- Glucose LV Protein Blood Type 10/03/23 -?-?-?-?-?-?-?-?-?-?-?-?- 8w 5d 170 lb (+5 lb) 170 lb -?-?-?-?-?-?-?-?-?-?-?-?- 10/19/23 -?-?-?-?-?-?-?-?-?-?-?-?- 11w 0d 170 lb (+5 lb) 11 150 116/64 170 lb -?-?-?-?-?-?-?-?-?-?-?-?- 11/15/23 -?-?-?-?-?-?-?-?-?-?-?-?- 14w 6d 180 lb (+15 lb) 15 150 100/60 180 lb -?-?-?-?-?-?-?-?-?-?-?-?- 12/13/23 -?-?-?-?-?-?-?-?-?-?-?-?- 18w 6d 185 lb (+20 lb) 19 150 104/60 185 lb -?-?-?-?-?-?-?-?-?-?-?-?- 01/10/24 -?-?-?-?-?-?-?-?-?-?-?-?- 22w 6d 190 lb (+25 lb) 22 150 active 112/62 190 lb -?-?-?-?-?-?-?-?-?-?-?-?- 02/08/24 -?-?-?-?-?-?-?-?-?-?-?-?- 27w 0d 198 lb (+33 lb) 27.5 150 active 124/80 198 lb -?-?-?-?-?-?-?-?-?-?-?-?- 02/26/24 -?-?-?-?-?-?-?-?-?-?-?-?- 29w 4d 197 lb (+32 lb) 30 140 active 112/64 197 lb -?-?-?-?-?-?-?-?-?-?-?-?- 03/18/24 -?-?-?-?-?-?-?-?-?-?-?-?- 32w 4d 205 lb (+40 lb) 32 140 active 100/64 205 lb -?-?-?-?-?-?-?-?-?-?-?-?- 04/02/24 -?-?-?-?-?-?-?-?-?-?-?-?- 34w 5d 206 lb (+41 lb) 33 140 active 100/64 206 lb -?-?-?-?-?-?-?-?-?-?-?-?- 04/15/24 -?-?-?-?-?-?-?-?-?-?-?-?- 36w 4d 211 lb (+46 lb) 35 150 active 110/60 211 lb -?-?-?-?-?-?-?-?-?-?-?-?- 04/23/24 -?-?-?-?-?-?-?-?-?-?-?-?- 37w 5d 214 lb (+49 lb) 36 140 active 114/64 214 lb -?-?-?-?-?-?-?-?-?-?-?-?- 04/29/24 -?-?-?-?-?-?-?-?-?-?-?-?- 38w 4d 215 lb (+50 lb) 36 140 90/64 215 lb -?-?-?-?-?-?-?-?-?-?-?-?- Notes Visit Date: 04/29/24 Last Updated by: Renee Hill CNM Note author: Renee Hill CNM. 38.4wk. CHERYL. Taking PNV, Doing well with no concerns today. Good appetite, stays well hydrated. Denies any LOF, VB, abd. pain or urinary symptoms. Good FM. Has AP testing appt. booked. Reviewed: Labor s/s-LOF/Ctx's/VB, when to seek emergent care. FKC and when to call the office for further eval. Hydrate well, 10-12 glasses of water daily. RTO 1wks. Visit Date: 04/23/24 Last Updated by: Renee Hill CNM Note author: Renee Hill CNM. 37.5wk. CHERYL. Taking PNV, Doing well with no concerns. Good appetite, stays well hydrated. Denies any LOF, VB, abd. pain or urinary symptoms. She reports good movements. Prepped at home. Reviewed: GBS is negative, copies to the hospital and copy for patient to have on hand to bring to the hospital. Labor s/s-LOF/Ctx's/VB, when to seek emergent care. FKC and when to call the office for further eval. Encouraged a healthy well balanced diet, regular walking/exercise in . Hydrate well, 10-12 glasses of water daily. ACOG literature reviewed inconclusive for AP testing with her criteria of 35-AMA at delivery date, plan BPP and NSTs at [facility], continue kick counts. Staff to schedule appointments. RTO 1 wks. Visit Date: 04/15/24 Last Updated by: Tabitha Elias CNM Seen today at 36 weeks and 4 days at our [facility] office. She says she is doing well baby is active she is not having any issues with any discomforts or swelling or any untoward symptoms. She is aware of when to seek care in labor with contractions or rupture of membranes or decreased movement. She is feeling prepared and ready she does not have any questions and she has viewed Education films. She lives in [place] but works in [employer] so so she found it convenient to stay here for care. We will do cultures today. EFW by Law's 5 and half to 6 lb vertex ROT, testing done for gonorrhea chlamydia and group B strep. Patient declined vaginal exam normal appearing discharge. Discussed labor readiness and potentially switching to breast and bottle in future and plans for Nexplanon for control at 6 weeks patient does not have any other questions she will have weekly visits from here on out. Visit Date: 04/02/24 Last Updated by: Renee Hill CNM Note author: Renee Hill CNM. 34.5wk. CHERYL. Taking PNV, Doing well with no concerns. Good appetite, stays well hydrated. Denies any LOF, VB, abd. pain or urinary symptoms. Reviewed: PTL s/s-LOF/Ctx's/VB, when to seek emergent care. discomforts, self help measures. FKC and when to call the office for further eval. Encouraged a healthy well balanced diet, regular walking/exercise in . Hydrate well, 10-12 glasses of water daily. Tdap today. RTO 2wks. Visit Date: 03/18/24 Last Updated by: Renee Hill CNM Note author: Renee Hill CNM. 32.4wk. CHERYL. Taking PNV, Doing well with no concerns. Good appetite, stays well hydrated. Denies any LOF, VB, abd. pain or urinary symptoms. Plans vacation in [facility] soon. Reviewed: PTL s/s-LOF/Ctx's/VB, when to seek emergent care. FM and when to call the office for further eval. RTO 2wks. Visit Date: 02/26/24 Last Updated by: Renee Hill CNM Note author: Renee Hill CNM. 29.4 wk. CHERYL. Taking PNV, Doing well with no concerns. Good appetite, stays well hydrated. Denies any LOF, VB, abd. pain or urinary symptoms. She reports a mild case of COVID last week. Reviewed: PTL s/s-LOF/Ctx's/VB, when to seek emergent care. discomforts, self help measures. FM and when to call the office for further eval. Encouraged a healthy well balanced diet, regular walking/exercise in . Hydrate well, 10-12 glasses of water daily. RhoGAM today. Plans Tdap at her next visit. RTO 2 wks. Visit Date: 02/08/24 Last Updated by: Renee Hill CNM Note author: Renee Hill CNM. 27wk. CHERYL. Taking PNV, Doing well with no concerns. Good appetite, stays well hydrated. Denies any LOF, VB, abd. pain or urinary symptoms. A negative plan 28 week labs next week and RhoGAM to follow. Appointments to be scheduled RTO 2 wks. Visit Date: 01/10/24 Last Updated by: Renee Hill CNM Note author: Renee Hill CNM. 22.6wk. CHERYL. Taking PNV, Doing well with no concerns. Good appetite, stays well hydrated. Denies any LOF, VB, abd. pain or urinary symptoms. Good FM. Having a girl. Reviewed: FAS PTL s/s-LOF/Ctx's/VB, PEC s/s when to seek emergent care. discomforts, self help measures. FM and when to call the office for further eval. Hydrate well, 10-12 glasses of water daily. Options for classes. 28wk labs at next visit, A neg. Rhogam to follow. RTO 4wks. Visit Date: 12/13/23 Last Updated by: Renee Hill CNM Note author: Renee Hill CNM. 18.6wk. CHERYL. Taking PNV, Doing well with no concerns. Good appetite, stays well hydrated. Denies any LOF, VB, abd. pain or urinary symptoms. FAS 12/21/23. Reviewed: LOF/Ctx's/VB, when to seek emergent care. Labs. RTO 4wks. Visit Date: 11/15/23 Last Updated by: Renee Hill CNM Note author: Renee Hill CNM. 14.6 wk. CHERYL. Taking PNV, Doing well with no concerns. Good appetite, stays well hydrated. Denies any LOF, VB, abd. pain or urinary symptoms. Reviewed: NT-normal, Panoramic low risk (does not want to know the gender at this time), horizon results-negative . Reviewed: PTL s/s-LOF/Ctx's/VB, [facility]. Discussed seeing option of seeing midwives at [facility] sooner if desires to establish care. Encouraged a healthy well balanced diet, regular walking/exercise in . Hydrate well, 8-10 glasses of water daily. FAS in 4-5 weeks RTO 4 wks. Visit Date: 10/19/23 Last Updated by: Renee Hill CNM Note author: Renee Hill CNM. 11wk. CHERYL. Taking PNV, Doing well with no concerns. Good appetite, stays well hydrated. Denies any LOF, VB, abd. pain or urinary symptoms. OBPE today, enlarged right thyroid lobe plan labs follow up with PCP. EPDS=2. Reviewed: Panoramic labs today. Nuchal lucency ordered appt. on 10/28 at [facility]. Rh neg, to call if any VB. Rhogam use. When to call for any vaginal bleeding or abdominal pain or other concerns. Encouraged a healthy well balanced diet, regular walking/exercise in . Hydrate well, 8-10 glasses of water daily. RTO 4wks. Visit Date: 10/03/23 Last Updated by: Lisbet Fontenot Swati is a pleasant with LMP 08/01/23 (certain) and SUSANNAH 05/07/24, GA today 8w5d. US on 09/21/23 at 7w0d gives SUSANNAH 05/09/24 and GA today of 9w0d. She is taking OTC PNV and reports some occasional nausea, otherwise she feels well. She takes dry crackers for relief. Swati and her are excited about this planned . She is 33 yo and will be 34 yo on or about her SUSANNAH. She was given the Folder. We reviewed danger signs, and first trimester education. Will order NT US and labs today. Pt is scheduled for OB PE 10/19/23 with Kaycee paperwork will be provided for this visit. Swati requests sex to be provided, although she is not completely certain she will want to know the result. Further discussion at the time of results. Swati also reports h/o enlarged kidney without problems at this time. She sees Urologist here at [facility] [place] Blood type A neg per patient. Pt has no questions at this time. She verbalizes understanding and agrees with plan. Results AMB Urinalysis, Automated UA Leukoctes 3 Efrain/uL Last Edit by MUSTAPHA Prakash on 04/29/24 09:28 UA Nitrite Negative Last Edit by MUSTAPHA Prakash on 04/29/24 09:28 UA Urobilinogen 0 mg/dL Last Edit by MUSTAPHA Prakash on 04/29/24 09:2 8 UA Protein 1 mg/dL Last Edit by MUSTAPHA Prakash on 04/29/24 09:28 UA pH 7.0 Last Edit by MUSTAPHA Prakash on 04/29/24 09:28 UA Blood 0 [place]/uL Last Edit by MUSTAPHA Prakash on 04/29/24 09:28 UA Specific [place] 1.010 Last Edit by MUSTAPHA Prakash on 04/29/24 09:28 UA Ketone Negative Last Edit by MUSTAPHA Prakash on 04/29/24 09:28 UA Bilirubin 0 mg/dL Last Edit by MUSTAPHA Prakash on 04/29/24 09:28 UA Glucose 0 mg/dL Last Edit by MUSTAPHA Prakash on 04/29/24 09:28 Coding Level of Care Code [place]
[2024-04-29 09:21] VITALS: BP 90/64; BMI 33.7
== END 2024-04-29 09:53 | disposition home or self-care (01) ==
LOC: HO.HWS 09:19
PROVIDERS: PCP Nurse Practitioner; Visit Provider Advanced Practice Midwife
DX: Z34.00 Encounter for supervision of normal first pregnancy, unspecified trimester (principal)
CPT/HCPCS: 25942

== ENCOUNTER → 2024-04-29 09:19 | Outpatient (BNVA) | payer BC, SELFPAY | PROVIDERS: PCP Nurse Practitioner; Visit Provider Advanced Practice Midwife | DX: O09.513 Supervision of elderly primigravida, third trimester (principal); Z3A.38 38 weeks gestation of pregnancy | CPT/HCPCS: 81003; 99212 ==

== ENCOUNTER 2024-05-06 14:55 | Outpatient (AMB) | payer BC, SELFPAY ==
[2024-05-06 15:03] VITALS: BP 112/74; BMI 33.4
--- NOTE | 2024-05-06 15:03 | MHC.OFFVISPN ---
Intake Vital Signs 05/06/24 15:03 Height 5 ft 7 in Weight 213 lb BMI 33.4 BP 112/74 Intake Visit Reasons: CHERYL Allergies Sulfa (Sulfonamide Antibiotics) Allergy (Unknown, Verified 05/06/24 15:04) hives Patient : Yes PFSH Medical History Supervision of normal in second trimester Enlarged kidney Asthma Surgical History History of ureteropelvic junction repair Family History Paternal Grandmother History of breast cancer Colon cancer Lung cancer Paternal Grandfather CAD (coronary artery disease) Maternal Grandmother Alzheimer's dementia Mother Hypothyroidism Father No problems noted. 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 old G 1 P0 EDC: 05/09/24 by US Blood type: Aneg Problem List: 1. Rh negative, Rhogam 02/26/24 2. AMA, EDC on birthdate 3. enlarged right thyroid lobe-TSH, ref. to PCP, FH of thyroid disorder-mom EPDS=2 at IOB Testing: Panorama: low risk CBC 1st Tri: 13.7/41.7 28 wk. HCT: 36.6 Glucose- 132 GBS: negative. Vaccinations: Flu: UTD Covid: Vax x4, Covid+ . Tdap: RSV: [id number]: Education/Services WIC: not eligible CBE: [facility] info given, tour and classes book. 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 [employer] Transportation: own car Labor, and Concerns: Labor support: Plan: natural Feeding Plans: control: Nexplanon OB Visit Log Initial Weight: 165 lb Date <del>?</del> EGA Weight Gest Week Fundal Ht Present FHR move Efface % Edema BP PrePreg We Weight GTT <del>?</del> Glucose LV Protein Blood Type 10/03/23 <del>?</del> 8w 5d 170 lb (+5 lb) 170 lb <del>?</del> 10/19/23 <del>?</del> 11w 0d 170 lb (+5 lb) 11 150 116/64 170 lb <del>?</del> 11/15/23 <del>?</del> 14w 6d 180 lb (+15 lb) 15 150 100/60 180 lb <del>?</del> 12/13/23 <del>?</del> 18w 6d 185 lb (+20 lb) 19 150 104/60 185 lb <del>?</del> 01/10/24 <del>?</del> 22w 6d 190 lb (+25 lb) 22 150 active 112/62 190 lb <del>?</del> 02/08/24 <del>?</del> 27w 0d 198 lb (+33 lb) 27.5 150 active 124/80 198 lb <del>?</del> 02/26/24 <del>?</del> 29w 4d 197 lb (+32 lb) 30 140 active 112/64 197 lb <del>?</del> 03/18/24 <del>?</del> 32w 4d 205 lb (+40 lb) 32 140 active 100/64 205 lb <del>?</del> 04/02/24 <del>?</del> 34w 5d 206 lb (+41 lb) 33 140 active 100/64 206 lb <del>?</del> 04/15/24 <del>?</del> 36w 4d 211 lb (+46 lb) 35 150 active 110/60 211 lb <del>?</del> 04/23/24 <del>?</del> 37w 5d 214 lb (+49 lb) 36 140 active 114/64 214 lb <del>?</del> 04/29/24 <del>?</del> 38w 4d 215 lb (+50 lb) 36 140 90/64 215 lb <del>?</del> 05/06/24 <del>?</del> 39w 4d 213 lb (+48 lb) 35 140 active 112/74 213 lb <del>?</del> Notes Visit Date: 05/06/24 Last Updated by: Renee Hill CNM Note author: Renee Hill CNM. 39.4 wk. CHERYL. Taking PNV, Doing well with no concerns. Good appetite, stays well hydrated. Denies any contractions, LOF, VB, abd. pain or urinary symptoms. VE requested, cervix difficult to reach, vertex low. Reviewed: Labor symptoms-LOF/Ctx's/VB/PEC s/s, when to seek emergent care. discomforts, self help measures. FKC and when to call the office for further eval. Has AP testing-NSTs on Sunday and BPP is on for AMA. Plan scheduled induction of labor, continue AP testing until delivery, book 1 week follow up if needed. Flu vaccine advised, office stalk not available until May encouraged to seek out vaccination with primary care or [facility]. RTO 1wks. Visit Date: 04/29/24 Last Updated by: Renee Hill CNM Note author: Renee Hill CNM. 38.4wk. CHERYL. Taking PNV, Doing well with no concerns today. Good appetite, stays well hydrated. Denies any LOF, VB, abd. pain or urinary symptoms. Good FM. Has AP testing appt. booked. Reviewed: Labor s/s-LOF/Ctx's/VB, when to seek emergent care. FKC and when to call the office for further eval. Hydrate well, 10-12 glasses of water daily. RTO 1wks. Visit Date: 04/23/24 Last Updated by: Renee Hill CNM Note author: Renee Hill CNM. 37.5wk. CHERYL. Taking PNV, Doing well with no concerns. Good appetite, stays well hydrated. Denies any LOF, VB, abd. pain or urinary symptoms. She reports good movements. Prepped at home. Reviewed: GBS is negative, copies to the hospital and copy for patient to have on hand to bring to the hospital. Labor s/s-LOF/Ctx's/VB, when to seek emergent care. FKC and when to call the office for further eval. Encouraged a healthy well balanced diet, regular walking/exercise in . Hydrate well, 10-12 glasses of water daily. ACOG literature reviewed inconclusive for AP testing with her criteria of 35-AMA at delivery date, plan BPP and NSTs at [facility], continue kick counts. Staff to schedule appointments. RTO 1 wks. Visit Date: 04/15/24 Last Updated by: Tabitha Elias CNM Seen today at 36 weeks and 4 days at our [facility] office. She says she is doing well baby is active she is not having any issues with any discomforts or swelling or any untoward symptoms. She is aware of when to seek care in labor with contractions or rupture of membranes or decreased movement. She is feeling prepared and ready she does not have any questions and she has viewed Education films. She lives in [place] but works in [place] so so she found it convenient to stay here for care. We will do cultures today. EFW by Law's 5 and half to 6 lb vertex ROT, testing done for gonorrhea chlamydia and group B strep. Patient declined vaginal exam normal appearing discharge. Discussed labor readiness and potentially switching to breast and bottle in future and plans for Nexplanon for control at 6 weeks patient does not have any other questions she will have weekly visits from here on out. Visit Date: 04/02/24 Last Updated by: Renee Hill CNM Note author: Renee Hill CNM. 34.5wk. CHERYL. Taking PNV, Doing well with no concerns. Good appetite, stays well hydrated. Denies any LOF, VB, abd. pain or urinary symptoms. Reviewed: PTL s/s-LOF/Ctx's/VB, when to seek emergent care. discomforts, self help measures. FKC and when to call the office for further eval. Encouraged a healthy well balanced diet, regular walking/exercise in . Hydrate well, 10-12 glasses of water daily. Tdap today. RTO 2wks. Visit Date: 03/18/24 Last Updated by: Renee Hill CNM Note author: Renee Hill CNM. 32.4wk. CHERYL. Taking PNV, Doing well with no concerns. Good appetite, stays well hydrated. Denies any LOF, VB, abd. pain or urinary symptoms. Plans vacation in [facility] soon. Reviewed: PTL s/s-LOF/Ctx's/VB, when to seek emergent care. FM and when to call the office for further eval. RTO 2wks. Visit Date: 02/26/24 Last Updated by: Renee Hill CNM Note author: Renee Hill CNM. 29.4 wk. CHERYL. Taking PNV, Doing well with no concerns. Good appetite, stays well hydrated. Denies any LOF, VB, abd. pain or urinary symptoms. She reports a mild case of COVID last week. Reviewed: PTL s/s-LOF/Ctx's/VB, when to seek emergent care. discomforts, self help measures. FM and when to call the office for further eval. Encouraged a healthy well balanced diet, regular walking/exercise in . Hydrate well, 10-12 glasses of water daily. RhoGAM today. Plans Tdap at her next visit. RTO 2 wks. Visit Date: 02/08/24 Last Updated by: Renee Hill CNM Note author: Renee Hill CNM. 27wk. CHERYL. Taking PNV, Doing well with no concerns. Good appetite, stays well hydrated. Denies any LOF, VB, abd. pain or urinary symptoms. A negative plan 28 week labs next week and RhoGAM to follow. Appointments to be scheduled RTO 2 wks. Visit Date: 01/10/24 Last Updated by: Renee Hill CNM Note author: Renee Hill CNM. 22.6wk. CHERYL. Taking PNV, Doing well with no concerns. Good appetite, stays well hydrated. Denies any LOF, VB, abd. pain or urinary symptoms. Good FM. Having a girl. Reviewed: FAS PTL s/s-LOF/Ctx's/VB, PEC s/s when to seek emergent care. discomforts, self help measures. FM and when to call the office for further eval. Hydrate well, 10-12 glasses of water daily. Options for classes. 28wk labs at next visit, A neg. Rhogam to follow. RTO 4wks. Visit Date: 12/13/23 Last Updated by: Renee Hill CNM Note author: Renee Hill CNM. 18.6wk. CHERYL. Taking PNV, Doing well with no concerns. Good appetite, stays well hydrated. Denies any LOF, VB, abd. pain or urinary symptoms. FAS 12/21/23. Reviewed: LOF/Ctx's/VB, when to seek emergent care. Labs. RTO 4wks. Visit Date: 11/15/23 Last Updated by: Renee Hill CNM Note author: Renee Hill CNM. 14.6 wk. CHERYL. Taking PNV, Doing well with no concerns. Good appetite, stays well hydrated. Denies any LOF, VB, abd. pain or urinary symptoms. Reviewed: NT-normal, Panoramic low risk (does not want to know the gender at this time), horizon results-negative . Reviewed: PTL s/s-LOF/Ctx's/VB, when to seek emergent [facility] at [facility]. Discussed seeing option of seeing midwives at [facility] sooner if desires to establish care. Encouraged a healthy well balanced diet, regular walking/exercise in . Hydrate well, 8-10 glasses of water daily. FAS in 4-5 weeks RTO 4 wks. Visit Date: 10/19/23 Last Updated by: Renee Hill CNM Note author: Renee Hill CNM. 11wk. CHERYL. Taking PNV, Doing well with no concerns. Good appetite, stays well hydrated. Denies any LOF, VB, abd. pain or urinary symptoms. OBPE today, enlarged right thyroid lobe plan labs follow up with PCP. EPDS=2. Reviewed: Panoramic labs today. Nuchal lucency ordered appt. on 10/28 at [facility]. Rh neg, to call if any VB. Rhogam use. When to call for any vaginal bleeding or abdominal pain or other concerns. Encouraged a healthy well balanced diet, regular walking/exercise in . Hydrate well, 8-10 glasses of water daily. RTO 4wks. Visit Date: 10/03/23 Last Updated by: Lisbet Persaudcarlton Longoria is a pleasant with LMP 08/01/23 (certain) and SUSANNAH 05/07/24, GA today 8w5d. US on 09/21/23 at 7w0d gives SUSANNAH 05/09/24 and GA today of 9w0d. She is taking OTC PNV and reports some occasional nausea, otherwise she feels well. She takes dry crackers for relief. Swati and her are excited about this planned . She is 33 yo and will be 34 yo on or about her SUSANNAH. She was given the Folder. We reviewed danger signs, and first trimester education. Will order NT US and labs today. Pt is scheduled for OB PE 10/19/23 with Kaycee paperwork will be provided for this visit. Swati requests sex to be provided, although she is not completely certain she will want to know the result. Further discussion at the time of results. Swati also reports h/o enlarged kidney without problems at this time. She sees Urologist here at [facility]. Blood type A neg per patient. Pt has no questions at this time. She verbalizes understanding and agrees with plan. Results AMB Urinalysis, Automated UA Leukoctes 2 Efrain/uL Last Edit by MUSTAPHA Prakash on 05/06/24 15:04 UA Nitrite Negative Last Edit by MUSTAPHA Prakash on 05/06/24 15:04 UA Urobilinogen 0 mg/dL Last Edit by Jovanna Quintero [facility] on 05/06/24 15:04 UA Protein 0.5 mg/dL Last Edit by MUSTAPHA Prakash on 05/06/24 15:04 UA pH 7.0 Last Edit by Jovanna Quintero [facility] on 05/06/24 15:04 UA Blood 0 [place]/uL Last Edit by MUSTAPHA Prakash on 05/06/24 15:04 UA Specific [place] 1.010 Last Edit by MUSTAPHA Prakash on 05/06/24 15:04 UA Ketone Negative Last Edit by MUSTAPHA Prakash on 05/06/24 15:04 UA Bilirubin 0 mg/dL Last Edit by BOUBACAR Prakash on 05/06/24 15:04 UA Glucose 0 mg/dL Last Edit by Jovanna Quintero [facility] on 05/06/24 15:04 Results Reviewed Results Reviewed: Laboratory Last Values Urine pH (Auto) 7.0 05/06/24 15:02 Specific [place] (Auto) 1.010 05/06/24 15:02 Urine Protein (Auto) 0.5 mg/dL 05/06/24 15:02 Glucose (UA)(Auto) 0 mg/dL 05/06/24 15:02 Urine Ketones (Auto) Negative 05/06/24 15:02 Urine Blood (Auto) 0 [place]/uL 05/06/24 15:02 Urine Nitrite (Auto) Negative 05/06/24 15:02 Urine Bilirubin (Auto) 0 mg/dL 05/06/24 15:02 Urine Urobilinogen (Auto) 0 mg/dL 05/06/24 15:02 Leukocyte Esterase (Auto) 2 Efrain/uL 05/06/24 15:02 Coding Level of Care Code [place] Assessment & Plan Assessment & Plan Orders: Orders AMB Urinalysis Automated Today Z34.00 - Encounter for supervision of normal first , unspecified trimester
== END 2024-05-06 15:29 | disposition home or self-care (01) ==
LOC: HO.HWS 14:55
PROVIDERS: PCP Nurse Practitioner; Visit Provider Advanced Practice Midwife
DX: Z34.00 Encounter for supervision of normal first pregnancy, unspecified trimester (principal)
CPT/HCPCS: 25942; 59426

== ENCOUNTER → 2024-05-06 14:55 | Outpatient (BNVA) | payer BC, SELFPAY | PROVIDERS: PCP Nurse Practitioner; Visit Provider Advanced Practice Midwife | DX: O09.513 Supervision of elderly primigravida, third trimester (principal); Z3A.39 39 weeks gestation of pregnancy | CPT/HCPCS: 81003; 99212 ==

== ENCOUNTER 2024-06-20 09:35 | Outpatient (AMB) | payer BC, SELFPAY ==
--- NOTE | 2024-06-20 09:37 | A.OFFVISPN_ITS ---
Intake Vital Signs 06/20/24 09:39 Height 5 ft 7 in Weight 190 lb BMI 29.8 BP 120/66 Intake Visit Reasons: 6 weeks PPV Intake Note: 05/10/24 8lb 7oz Female (Owen) Breast and Bottle feeding EPDS 5 Unit Assistant: Unit Assistant Present (Leisa) Allergies Sulfa (Sulfonamide Antibiotics) Allergy (Unknown, Verified 06/20/24 09:41) hives Is last menstrual period known: Yes Last menstrual period: 06/13/24 [facility] Medical History Lactating mother Enlarged kidney Asthma Surgical History History of ureteropelvic junction repair Family History Paternal Grandmother History of breast cancer Colon cancer Lung cancer Paternal Grandfather CAD (coronary artery disease) Maternal Grandmother Alzheimer's dementia Mother Hypothyroidism Father No problems noted. 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 Current occupational exposures/hazards: No Sexual orientation: Straight/Heterosexual Gender identity: Female Female Reproductive History Menstrual Age of Menarche: 11 Date of last menstrual period: 06/13/24 History History 1 Elective abortions 0 Para 0 Spontaneous abortions 0 Hx # Term Pregnancies 0 Ectopic pregnancies 0 Hx # Pregnancies 0 Multiple births 0 Questionnaire Houston Depression Houston Depression Scale I have been able to laugh and see the funny side of things: As much as I always could I have looked forward with enjoyment to things: As much as I ever did I have blamed myself unnecessarily when things went wrong: Not very often I have been anxious or worried for no reason: Hardly ever I have felt scared of panicky for no very good reason at all: No, not so much Things have been getting on top of me: No, most of the time I have coped quite well I have been so unhappy that I have had difficulty sleeping: No, not at all I have felt sad or miserable: No, not at all I have been so unhappy that I have been crying: Only occasionally The thought of harming myself has occurred to me: Never 5 Visit SUSANNAH Calculator Estimated Delivery Date Method Current WG Current Estimate 05/09/24 Ultrasound #1 46w 0d Other Estimates 05/07/24 LMP (Certain) 46w 2d Expected Delivery Route/Plan Specific Issues/Plans 33 Yr. old G 1 P0 EDC: 05/09/24 by US Blood type: Aneg Problem List: 1. Rh negative, Rhogam 02/26/24 2. AMA, EDC on birthdate 3. enlarged right thyroid lobe-TSH, ref. to PCP, FH of thyroid disorder-mom EPDS=2 at IOB Testing: Panorama: low risk CBC 1st Tri: 13.7/41.7 28 wk. HCT: 36.6 Glucose- 132 GBS: negative. Vaccinations: Flu: UTD Covid: Vax x4, Covid+ . Tdap: RSV: [id number]-August: Education/Services WIC: not eligible CBE: [facility] info given, tour and classes book. 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-?-?-?-?-?-?-?-?- 12/13/23 -?-?-?-?-?-?-?-?-?-?-?-?- 18w 6d 185 lb (+20 lb) 19 150 104/60 185 lb -?-?-?-?-?-?-?-?-?-?-?-?- 01/10/24 -?-?-?-?-?-?-?-?-?-?-?-?- 22w 6d 190 lb (+25 lb) 22 150 active 112/62 190 lb -?-?-?-?-?-?-?-?-?-?-?-?- 02/08/24 -?-?-?-?-?-?-?-?-?-?-?-?- 27w 0d 198 lb (+33 lb) 27.5 150 active 124/80 198 lb -?-?-?-?-?-?-?-?-?-?-?-?- 02/26/24 -?-?-?-?-?-?-?-?-?-?-?-?- 29w 4d 197 lb (+32 lb) 30 140 active 112/64 197 lb -?-?-?-?-?-?-?-?-?-?-?-?- 03/18/24 -?-?-?-?-?-?-?-?-?-?-?-?- 32w 4d 205 lb (+40 lb) 32 140 active 100/64 205 lb -?-?-?-?-?-?-?-?-?-?-?-?- 04/02/24 -?-?-?-?-?-?-?-?-?-?-?-?- 34w 5d 206 lb (+41 lb) 33 140 active 100/64 206 lb -?-?-?-?-?-?-?-?-?-?-?-?- 04/15/24 -?-?-?-?-?-?-?-?-?-?-?-?- 36w 4d 211 lb (+46 lb) 35 150 active 110/60 211 lb -?-?-?-?-?-?-?-?-?-?-?-?- 04/23/24 -?-?-?-?-?-?-?-?-?-?-?-?- 37w 5d 214 lb (+49 lb) 36 140 active 114/64 214 lb -?-?-?-?-?-?-?-?-?-?-?-?- 04/29/24 -?-?-?-?-?-?-?-?-?-?-?-?- 38w 4d 215 lb (+50 lb) 36 140 90/64 215 lb -?-?-?-?-?-?-?-?-?-?-?-?- 05/06/24 -?-?-?-?-?-?-?-?-?-?-?-?- 39w 4d 213 lb (+48 lb) 35 140 active 112/74 213 lb -?-?-?-?-?-?-?-?-?-?-?-?- 06/20/24 -?-?-?-?-?-?-?-?-?--?-?-?- 46w 0d 190 lb (+25 lb) 120/66 190 lb -?-?-?-?-?-?-?-?-?-?-?-?- Notes Visit Date: 06/20/24 Last Updated by: Renee Hill CNM visit: She is here today for her 6 week visit. Delivered via vaginal on 05/10/24 . Owen Del Rosario is doing well, breast and bottle-pumping feeding. weight: 3.65gm. 2nd repair, additional vaginal lac repair. Her bleeding has stopped. Diet and fluid intake is good. She reports having adequate sleep. EPDS=5 She denies any depression. Her sutures are healing well. She denies any pain. She is planning Nexplanon for control, and would like to postpone insertion at this time. Plans condoms. She has help at home/partner support. On maternity leave until 10/02/2024. Visit Date: 05/06/24 Last Updated by: Renee Hill CNM Note author: Renee Hill CNM. 39.4 wk. CHERYL. Taking PNV, Doing well with no concerns. Good appetite, stays well hydrated. Denies any contractions, LOF, VB, abd. pain or urinary symptoms. VE requested, cervix difficult to reach, vertex low. Reviewed: Labor symptoms-LOF/Ctx's/VB/PEC s/s, when to seek emergent care. discomforts, self help measures. FKC and when to call the office for further eval. Has AP testing-NSTs on Sunday and BPP is on for AMA. Plan scheduled induction of labor, continue AP testing until delivery, book 1 week follow up if needed. Flu vaccine advised, office stalk not available until May encouraged to seek out vaccination with primary care or [facility]. RTO 1wks. Visit Date: 04/29/24 Last Updated by: Renee Hill CNM Note author: Renee Hill CNM. 38.4wk. CHERYL. Taking PNV, Doing well with no concerns today. Good appetite, stays well hydrated. Denies any LOF, VB, abd. pain or urinary symptoms. Good FM. Has AP testing appt. booked. Reviewed: Labor s/s-LOF/Ctx's/VB, when to seek emergent care. FKC and when to call the office for further eval. Hydrate well, 10-12 glasses of water daily. RTO 1wks. Visit Date: 04/23/24 Last Updated by: Renee Hill CNM Note author: Renee Hill CNM. 37.5wk. CHERYL. Taking PNV, Doing well with no concerns. Good appetite, stays well hydrated. Denies any LOF, VB, abd. pain or urinary symptoms. She reports good movements. Prepped at home. Reviewed: GBS is negative, copies to the hospital and copy for patient to have on hand to bring to the hospital. Labor s/s-LOF/Ctx's/VB, when to seek emergent care. FKC and when to call the office for further eval. Encouraged a healthy well balanced diet, regular walking/exercise in . Hydrate well, 10-12 glasses of water daily. ACOG literature reviewed inconclusive for AP testing with her criteria of 35-AMA at delivery date, plan BPP and NSTs at [facility], continue kick counts. Staff to schedule appointments. RTO 1 wks. Visit Date: 04/15/24 Last Updated by: Tabitha Elias CNM Seen today at 36 weeks and 4 days at our [facility] office. She says she is doing well baby is active she is not having any issues with any discomforts or swelling or any untoward symptoms. She is aware of when to seek care in labor with contractions or rupture of membranes or decreased movement. She is feeling prepared and ready she does not have any questions and she has viewed Education films. She lives in [place] but works in [place] so so she found it convenient to stay here for care. We will do cultures today. EFW by Law's 5 and half to 6 lb vertex ROT, testing done for gonorrhea chlamydia and group B strep. Patient declined vaginal exam normal appearing discharge. Discussed labor readiness and potentially switching to breast and bottle in future and plans for Nexplanon for control at 6 weeks patient does not have any other questions she will have weekly visits from here on out. Visit Date: 04/02/24 Last Updated by: Renee Hill CNM Note author: Renee Hill CNM. 34.5wk. CHERYL. Taking PNV, Doing well with no concerns. Good appetite, stays well hydrated. Denies any LOF, VB, abd. pain or urinary symptoms. Reviewed: PTL s/s-LOF/Ctx's/VB, when to seek emergent care. discomforts, self help measures. FKC and when to call the office for further eval. Encouraged a healthy well balanced diet, regular walking/exercise in . Hydrate well, 10-12 glasses of water daily. Tdap today. RTO 2wks. Visit Date: 03/18/24 Last Updated by: Renee Hill CNM Note author: Renee Hill CNM. 32.4wk. CHERYL. Taking PNV, Doing well with no concerns. Good appetite, stays well hydrated. Denies any LOF, VB, abd. pain or urinary symptoms. Plans vacation in [facility] soon. Reviewed: PTL s/s-LOF/Ctx's/VB, when to seek emergent care. FM and when to call the office for further eval. RTO 2wks. Visit Date: 02/26/24 Last Updated by: Renee Hill CNM Note author: Renee Hill CNM. 29.4 wk. CHERYL. Taking PNV, Doing well with no concerns. Good appetite, stays well hydrated. Denies any LOF, VB, abd. pain or urinary symptoms. She reports a mild case of COVID last week. Reviewed: PTL s/s-LOF/Ctx's/VB, when to seek emergent care. discomforts, self help measures. FM and when to call the office for further eval. Encouraged a healthy well balanced diet, regular walking/exercise in . Hydrate well, 10-12 glasses of water daily. RhoGAM today. Plans Tdap at her next visit. RTO 2 wks. Visit Date: 02/08/24 Last Updated by: Renee Hill CNM Note author: Renee Hill CNM. 27wk. CHERYL. Taking PNV, Doing well with no concerns. Good appetite, stays well hydrated. Denies any LOF, VB, abd. pain or urinary symptoms. A negative plan 28 week labs next week and RhoGAM to follow. Appointments to be scheduled RTO 2 wks. Visit Date: 01/10/24 Last Updated by: Renee Hill CNM Note author: Renee Hill CNM. 22.6wk. CHERYL. Taking PNV, Doing well with no concerns. Good appetite, stays well hydrated. Denies any LOF, VB, abd. pain or urinary symptoms. Good FM. Having a girl. Reviewed: FAS PTL s/s-LOF/Ctx's/VB, PEC s/s when to seek emergent care. discomforts, self help measures. FM and when to call the office for further eval. Hydrate well, 10-12 glasses of water daily. Options for classes. 28wk labs at next visit, A neg. Rhogam to follow. RTO 4wks. Visit Date: 12/13/23 Last Updated by: Renee Hill CNM Note author: Renee Hill CNM. 18.6wk. CHERYL. Taking PNV, Doing well with no concerns. Good appetite, stays well hydrated. Denies any LOF, VB, abd. pain or urinary symptoms. FAS 12/21/23. Reviewed: LOF/Ctx's/VB, when to seek emergent care. Labs. RTO 4wks. Visit Date: 11/15/23 Last Updated by: Renee Hill CNM Note author: Renee Hill CNM. 14.6 wk. CHERYL. Taking PNV, Doing well with no concerns. Good appetite, stays well hydrated. Denies any LOF, VB, abd. pain or urinary symptoms. Rev iewed: NT-normal, Panoramic low risk (does not want to know the gender at this time), horizon results-negative . Reviewed: PTL s/s-LOF/Ctx's/VB, when to seek emergent care at [facility]. Discussed seeing option of seeing midwives at [facility] sooner if desires to establish care. Encouraged a healthy well balanced diet, regular walking/exercise in . Hydrate well, 8-10 glasses of water daily. FAS in 4-5 weeks RTO 4 wks. Visit Date: 10/19/23 Last Updated by: Renee Hill CNM Note author: Renee Hill CNM. 11wk. CHERYL. Taking PNV, Doing well with no concerns. Good appetite, stays well hydrated. Denies any LOF, VB, abd. pain or urinary symptoms. OBPE today, enlarged right thyroid lobe plan labs follow up with PCP. EPDS=2. Reviewed: Panoramic labs today. Nuchal lucency ordered appt. on 10/28 at [facility]. Rh neg, to call if any VB. Rhogam use. When to call for any vaginal bleeding or abdominal pain or other concerns. Encouraged a healthy well balanced diet, regular walking/exercise in . Hydrate well, 8-10 glasses of water daily. RTO 4wks. Visit Date: 10/03/23 Last Updated by: Lisbet Fontenot Swati is a pleasant with LMP 08/01/23 (certain) and SUSANNAH 05/07/24, GA today 8w5d. US on 09/21/23 at 7w0d gives SUSANNAH 05/09/24 and GA today of 9w0d. She is taking OTC PNV and reports some occasional nausea, otherwise she feels well. She takes dry crackers for relief. Swati and her are excited about this planned . She is 33 yo and will be 34 yo on or about her SUSANNAH. She was given the Folder. We reviewed danger signs, and first trimester education. Will order NT US and labs today. Pt is scheduled for OB PE 10/19/23 with Renee and Re paperwork will be provided for this visit. Swati requests sex to be provided, although she is not completely certain she will want to know the result. Further discussion at the time of results. Swati also reports h/o enlarged kidney without problems at this time. [place] [facility] [place] Blood type A neg per patient. Pt has no questions at this time. She verbalizes understanding and agrees with plan. Review of Systems Const All systems reviewed & are unremarkable except as noted in HPI and below Reports as per HPI Eyes Reports no additional complaints ENT Reports no additional complaints Card Reports no additional complaints Resp Reports no additional complaints GI Reports as per HPI and Reports no additional complaints Reports as per HPI Musc Reports no additional complaints Skin/Breast Reports as per HPI Neuro Reports no additional complaints Psych Reports no additional complaints Endo Reports no additional complaints Stanley/Lymph Reports no additional complaints Aller/Immun Reports no additional complaints Exam Const Constitutional General: cooperative, healthy appearing, no acute distress, well developed and alert Orientation/consciousness: patient oriented x3 HENMT Head: normal to inspection Eyes General: appearance normal, both eyes and all related structures Neck Neck: normal visual inspection Thyroid: Thyroid normal Chest Chest palpation & inspection: normal inspection of the chest and other (no puckering, dimpling, peau de orange, retraction, discharge, masses) Breast/axilla inspection: normal inspection of the breasts Breast/axilla palpation: normal palpation of the breasts Other: Lactational changes Resp Effort & Inspection: normal respiratory effort GI Inspection (GI): normal to inspection Palpation (GI): Soft to palpation General Exam: Yes bladder normal to palpation External Female Exam: normal external appearance, normal appearance of the urethra and other Urethra: normal appearance of the urethra Speculum exam - vagina: normal appearance of the vagina and normal discharge Speculum Exam - Cervix: normal appearance of the cervix Bimanual exam- vagina & uterus: normal bimanual exam, normal palpation, uterine size normal, bladder normal to palpation, normal palpation and non-tender Bimanual Exam- Adnexa, other: no masses and normal Pelvic Support: normal and other (Well-healed) Skin General skin exam: no rashes or lesions noted Rashes: no rashes Neuro Cognition (Neuro): normal cognition Extrem General: normal to inspection Psych Attitude: cooperative Thought process: Normal thought process present Coding Level of Care Code Betty Diagnoses Lactating mother Z39.1 exam Z39.2 Assessment & Plan Assessment & Plan (1) Lactating mother: Code(s): Z39.1 - Encounter for care and examination of lactating mother Category: Medical (2) exam: Code(s): Z39.2 - Encounter for routine follow-up Plan Discussed: All of her concerns including: Her experience. depression symptoms and when to call the office for a follow up for any concerns, Maintaining a healthy diet and adequate sleep. Continue vitamins if breast-feeding. Breast-feeding support, lactational services, [facility] website. Intimacy, vaginal lubricants if indicated. control options, and follow up counseling, surveillance as indicated. Use of condoms if indicated for prevention of STI and . Call office when ready to have Nexplanon device inserted. Exercise including abdominal toning and kegels. Pelvic floor therapy, referral option. Booklet given advised to call if decides to have services. RTO for annual insurance biller exam or as needed. All of her questions and concerns were addressed to the best of my ability and shared decision making. She is agreeable to the plan of care. This note is constructed using voice recognition software. While every effort has been made to ensure accuracy, geropsychologist errors may have been included.
[2024-06-20 09:39] VITALS: BP 120/66; BMI 29.8
== END 2024-06-20 10:14 | disposition home or self-care (01) ==
LOC: HO.HWS 09:35
PROVIDERS: PCP Nurse Practitioner; Visit Provider Advanced Practice Midwife
DX: Z39.1 Encounter for care and examination of lactating mother (principal); Z39.2 Encounter for routine postpartum follow-up
CPT/HCPCS: 59430

== ENCOUNTER → 2024-06-20 09:35 | Outpatient (BNVA) | payer BC, SELFPAY | PROVIDERS: PCP Nurse Practitioner; Visit Provider Advanced Practice Midwife ==

== ENCOUNTER 2024-12-03 12:27 | Outpatient (AMB) | payer BC, SELFPAY ==
--- NOTE | 2024-12-03 12:50 | MHC.OFFVIS ---
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 Currently with menses. UPT is negative. [facility] Medical History Nexplanon in place Lactating mother Enlarged kidney Asthma Surgical History History of ureteropelvic junction repair Family History Paternal Grandmother History of breast cancer Colon cancer Lung cancer Paternal Grandfather CAD (coronary artery disease) Maternal Grandmother Alzheimer's dementia Mother Hypothyroidism Father No problems noted. 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 Current occupational exposures/hazards: No Sexual orientation: Straight/Heterosexual Gender identity: Female Female Reproductive History Menstrual Age of Menarche: 11 Date of last menstrual period: 12/01/24 Review of Systems Const All systems reviewed & are unremarkable except as noted in HPI and below Endo Reports no additional complaints Physical Exam Vital Signs: Last Vital Signs BP 100/62 12/03/24 12:51 BMI result Body Mass Index 28.7 Const General: cooperative, healthy appearing and no acute distress Extrem Other: Left upper inner arm old scar noted, no rashes, skin lesions or tattoos Psych Appearance: well kempt Attitude: cooperative Thought process: Normal thought process present Office Procedures Contraception Insert/Removal Details Details: The patient is here today for a Nexplanon Insertion: She was counseled regarding the risks including and benefits for the Nexplanon device. She denies any risks to . Anticipatory guidance for the insertion procedure was reviewed. The urine test is negative. Risk of the procedure including pain, infection, bleeding, injury to the nerves, blood, vessels and surrounding tissue, migration of the device, unscheduled unpredictable bleeding patterns, weight gain, skin changes including acne. The consent form was signed and the patient request that the Nexplanon device be placed today. Nexplanon Insertion Procedure: The patient was placed in a supine position with her non dominant left hand resting under her head. The insertion site was located: 8-10cm from the medial epicondyle notch of the humerus, posterior to the sulcus, between the triceps and biceps muscle. The area was cleansed with an alcohol prep and 3 ml of 1% Lidocaine on a 25 gauge needle and syringe was utilized for adequate anesthesia to the insertion site. After ascertaining adequate anesthesia, the area was prepped with Betadine solution. The Nexplanon device was removed from the manufacturers package and the implant was noted in the trocar canal. The trocar was inserted at a 30 degree angle and then lowered parallel to the skin for insertion into the subcutaneous space with counter traction. Direct pressure was applied to the insertion site for hemostasis, minimal bleeding was observed. Steri strips, Tegaderm covering, gauze pads, and Diana wrap dressing were secured with paper tape. Nexplanon Post-insertion Care: You may experience some mild tenderness, swelling, and bruising from the area. If no allergies or contraindications, you may use a mild over the counter analgesic like Tylenol or Advil (follow the manufacturers recommendations on dosing and frequency of use). Call the office if any symptoms and including: fever (over 100.4), flu like symptoms, signs of infection-redness, pus drainage, pain (beyond usual healing), for any medical changes, suspected , heavy or prolonged vaginal bleeding Seek emergent care in the Emergency department for: sudden visual loss, shortness of breath, severe headache that is not consistent with your usual headaches, heaviness, sharp or severe chest pains, coughing up of blood, persistent pain in one of your extremities, weakness or numbness in an arm, leg or face, tongue or pharynx, trouble swallowing, difficult speaking, hives and trouble breathing, yellowing of skin, whites or eyes, especially with tiredness, loss of appetite, dark colored urine, light colored bowel movements, swelling or tenderness of the abdomen. The Nexplanon does not protect you from STI's, use of condoms is advised. Use a back up method of contraception for 7 days if the device is not placed within the first 5 days of your menses cycle to prevent an unintended . Keep the pressure dressing on and clean and dry for 24 hours, then remove it. You may take the steri strips and Tegaderm off in 5-7days, or sooner if peeling off on its own. Schedule a office post insertion check up in 4-6 weeks. The patient tolerated the procedure well and left the office in good condition. This note is constructed using voice recognition software. While every effort has been made to ensure accuracy, alternative education teacher errors may have been included. 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 Return to the office 4-6 weeks for Nexplanon check. This note is constructed using voice recognition software. While every effort has been made to ensure accuracy, alternative education teacher errors may have been included. Orders: Orders AMB HCG Urine Test Today Z32.02 - Encounter for test, result negative Coding Level of Care Code Procedure Only Diagnoses Nexplanon insertion Z30.017 CPT Codes Details - Contraception: 80651 - Insertion ([id number])
[2024-12-03 12:51] VITALS: BP 100/62; BMI 28.7
== END 2024-12-03 14:07 | disposition home or self-care (01) ==
LOC: HO.HWS 12:27
PROVIDERS: PCP Nurse Practitioner; Visit Provider Advanced Practice Midwife
DX: Z30.017 Encounter for initial prescription of implantable subdermal contraceptive (principal); Z32.02 Encounter for pregnancy test, result negative
CPT/HCPCS: 11981

== ENCOUNTER → 2024-12-03 12:27 | Outpatient (BNVA) | payer BC, SELFPAY | PROVIDERS: PCP Nurse Practitioner; Visit Provider Advanced Practice Midwife | DX: Z30.017 Encounter for initial prescription of implantable subdermal contraceptive (principal) | CPT/HCPCS: 11981; 81025; J7307 ==

== ENCOUNTER 2025-01-14 10:31 | Outpatient (AMB) | payer BC, SELFPAY ==
[2025-01-14 10:35] VITALS: BP 104/68
--- NOTE | 2025-01-14 10:35 | A.OFFVIS_ITS ---
Vital Signs 01/14/25 10:35 Weight 179 lb BP 104/68 Blood Pressure Location Rt radial Position Sitting Intake Visit Reasons: 4-6 wk follow up, ROOM 4 Bilingual Operator Required: No Finance And Administration Manager: Finance And Administration Manager Present Allergies Sulfa (Sulfonamide Antibiotics) Allergy (Unknown, Verified 01/14/25 10:46) hives Medication List - Last Reconciled 01/14/25 by Mandy Gutierrez LPN albuterol sulfate 90 mcg/actuation (Proair Digihaler) 2 inhalations inhalation Q6H PRN etonogestrel (Nexplanon) subdermal PNV #[id number] acid-dha 35 mg iron-5 mg iron-1 mg 1 cap PO DAILY Is last menstrual period known: No HPI Comments Details: Patient is here today for a post Nexplanon insertion 1st checkup. Inserted 12/03/24. She reports the area is well healed and has no concerns with any bleeding currently has brown discharge. She has had the implant in the past. [facility] Medical History (Updated 12/03/24 @ 13:21 by Renee Hill CNM) Nexplanon in place Lactating mother Enlarged kidney Asthma Surgical History History of ureteropelvic junction repair Family History Paternal Grandmother History of breast cancer Colon cancer Lung cancer Paternal Grandfather CAD (coronary artery disease) Maternal Grandmother Alzheimer's dementia Mother Hypothyroidism Father No problems noted. 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 Current occupational exposures/hazards: No Sexual orientation: Straight/Heterosexual Gender identity: Female Female Reproductive History Menstrual Age of Menarche: 11 control method: implanted (Nexplanon 12/03/24 ) Review of Systems Const All systems reviewed & are unremarkable except as noted in HPI and below Endo Reports no additional complaints Physical Exam Vital Signs: Last Vital Signs BP 104/68 01/14/25 10:35 Const General: cooperative, healthy appearing and no acute distress Extrem Left upper extremity: normal to inspection (Implant well healed on the inner upper arm, nontender) Psych Appearance: well kempt Attitude: cooperative Thought process: Normal thought process present Assessment & Plan Assessment & Plan (1) Encounter for surveillance of Nexplanon subdermal contraceptive: Code(s): Z30.46 - Encounter for surveillance of implantable subdermal contraceptive Plan Reviewed bleeding profile and normal pattern is not predictable, report any abnormal bleeding. Call with any concerns regarding implant area with pain, migration or swelling, or concerns with device. The patient expressed understanding and agreement with the plan of care. All of her questions and concerns were addressed to the best of my ability. Annual exam is scheduled for 06/25/2025. This note is constructed using voice recognition software. While every effort has been made to ensure accuracy, tank bottom assembler errors may have been included. Coding Level of Care Code Est Pt Level 2 (87437) Diagnoses Encounter for surveillance of Nexplanon subdermal contraceptive Z30.46
== END 2025-01-14 11:05 | disposition home or self-care (01) ==
LOC: HO.HWS 10:32
PROVIDERS: PCP Nurse Practitioner; Visit Provider Advanced Practice Midwife
DX: Z30.46 Encounter for surveillance of implantable subdermal contraceptive (principal)
CPT/HCPCS: 99212